=== PATIENT | female | born 1995 | race Caucasian/White ===

== ENCOUNTER → 2020-12-06 14:40 | Outpatient (CLI) | payer OTHER, SELFPAY ==
[2020-12-08 16:26] LABS: Varicella Zoster IgG 495 index (Immune >165)
== END ==
PROVIDERS: Visit Provider Emergency Medicine
DX: Z01.84 Encounter for antibody response examination (principal)
CPT/HCPCS: 86787

== ENCOUNTER → 2020-12-09 15:40 | Outpatient (CLI) | payer OTHER, SELFPAY ==
[2020-12-11 08:13] LABS: Hep B Surface Ab, Qual Reactive (.)
== END ==
PROVIDERS: Visit Provider Nurse Practitioner Family
DX: Z01.84 Encounter for antibody response examination (principal)
CPT/HCPCS: 36415; 86706

== ENCOUNTER → 2021-01-18 13:51 | Outpatient (CLI) | payer OTHER, SELFPAY | PROVIDERS: PCP Emergency Medicine; Visit Provider Nurse Practitioner | DX: Z20.822 Contact with and (suspected) exposure to COVID-19 (principal) | CPT/HCPCS: C9803; U0003; U0005 ==

== ENCOUNTER 2021-01-26 17:01 | Emergency (ER) | payer OTHER, SELFPAY ==
[2021-01-26 17:18] VITALS: BP 127/81; PULSE 84; RESP 18; TEMP 36.7; O2SAT 100; BMI 25.6
--- NOTE | 2021-01-26 17:43 | HMH.EDUTC ---
[facility] [place] Clinical Impression: Acute bronchitis Qualifiers: Bronchitis organism: other organism Qualified Code(s): J20.8 - Acute bronchitis due to other specified organisms Sinusitis Qualifiers: Sinusitis location: unspecified location Chronicity: acute Recurrence: non-recurrent Qualified Code(s): J01.90 - Acute sinusitis, unspecified Disposition: Home, Self-Care Condition on Discharge: Good Instructions: DI for Sinusitis, DI for Acute Bronchitis Additional Instructions: Drink plenty of fluids. Take tylenol or ibuprofen for pain or fever. Take the medications as directed. Follow up with your regular doctor. GO TO THE ER FOR ANY WORSENING SYMPTOMS The cough medication (promethazine dm) will make you drowsy, so don't drive or operate heavy machinery after taking it. Prescriptions: Promethazine/Dextromethorphan [Promethazine-Dm Syrup] 5 ml PO Q6HP PRN #240 ml PRN Reason: Cough Transmission Status: Received by [id number] methylPREDNISolone [Medrol] 4 mg PO DIRECTED 6 Days #21 packet Transmission Status: Received by [id number] Azithromycin [Z-Lauro 250mg Tab*] 250 mg PO UD DOSE PK #6 tab Transmission Status: Received by [id number] Referrals: Anselmo Crystal MD [Primary Care Provider] - Forms: Work/School Release Time of Disposition: 17:47 Medical Decision Making - Medical Records Medical records reviewed: No: I reviewed the patient's medical records. - Reese Inquiry Pt receiving controlled substance: No Vital Signs: 01/26/21 17:18 01/26/21 18:08 Temperature 98.1 F 98.1 F Temperature Source Oral Pulse Rate 84 Pulse Rate [Right] 84 Respiratory Rate 18 18 Blood Pressure 127/81 Blood Pressure [Right Arm] 127/81 Blood Pressure Mean [Right Arm] 96 Blood Pressure Source Automatic Cuff Blood Pressure Source [Right Arm] Automatic Cuff Blood Pressure Position [Right Arm] Sitting 02 Sat by Pulse Oximetry 100 Oxygen Delivery Method Room Air Room Air - Lab Data Lab results reviewed: Yes: I reviewed the patient's lab results. Lab Results 01/26/21 17:47: Chlamy pneumoniae PCR Not detected, Adenovirus (PCR) Not detected, B. pertussis DNA (PCR) Not detected, Coronavirus OC43 (PCR) Not detected, Coronavirus HKU1 (PCR) Not detected, Coronavirus 229E (PCR) Not detected, SARS-CoV-2 (PCR) Not detected, Coronavirus NL63 (PCR) Not detected, Human Metapneumovir PCR Not detected, Influenza A (H1) PCR Not detected, Influ A (H1N1/09) PCR Not detected, Influenza A (H3) PCR Not detected, Influenza Type A (PCR) Not detected, Influenza Type B (PCR) Not detected, M. pneumoniae (PCR) Not detected, Parainfluenza 1 (PCR) Not detected, Parainfluenza 2 (PCR) Not detected, Parainfluenza 3 (PCR) Not detected, Parainfluenza 4 (PCR) Not detected, RSV (PCR) Not detected, Entero/Rhino (PCR) Not detected Orders (Tests/Meds): ED MEDICATIONS Discontinued Medications Generic Name Dose Route Start Last Admin Trade Name Freq PRN Reason Stop Dose Admin Methylprednisolone Sodium Succinate 125 mg 01/26/21 17:47 01/26/21 17:55 Methylprednisolone Sod Succ 125mg Vial IM 01/26/21 17:48 125 mg ONCE ONE Administration [facility] [place] HPI - General Stated complaint: sore throat,congestion Time Seen by Provider: 01/26/21 17:30 Mode of Arrival: Ambulatory Source of Information: Patient Limitations: No Limitations Description of Symptoms (Recalled from Triage Doc. by RN): pt c/o chest congestion and states she has junk in my throat pt also has a productive cough. denies chest pain and sob. HEENT Symptoms (Recalled from RN notes): No Resp Symptoms (Recalled from RN notes): Yes (cough, congestion) Skin Symptoms (Recalled from RN notes): No MS Symptoms (Recalled from RN notes): No Functional Status (Recalled from RN notes): n/a - History of Present Illness Provider Complaint: She states that she has had chest congestion and sinus congestion for the past 2 weeks or so. Sh
[2021-01-26 17:50] LABS: Adenovirus,PCR Not Detected (NotDetected); Bordetella Pertussis Not Detected (NotDetected); Chlamydophila Pneumoniae, PCR Not Detected (NotDetected); Coronavirus 19, PCR Not Detected (NotDetected); Coronavirus 229E Not Detected (NotDetected); Coronavirus NL63 Not Detected (NotDetected); Coronavirus OC43 Not Detected (NotDetected); Coronovirus HKU1,PCR Not Detected (NotDetected); Human Metapneumovirus Not Detected (NotDetected); Influenza A, PCR Not Detected (NotDetected); Influenza AH1, 2009 Not Detected (NotDetected); Influenza AH1, PCR Not Detected (NotDetected); Influenza AH3,PCR Not Detected (NotDetected); Influenza B, PCR Not Detected (NotDetected); Mycoplasma Pneumoniae, PCR Not Detected (NotDetected); Parainfluenza 1, PCR Not Detected (NotDetected); Parainfluenza 2, PCR Not Detected (NotDetected); Parainfluenza 3, PCR Not Detected (NotDetected); Parainfluenza 4, PCR Not Detected (NotDetected); Respiratory Syncytial Virus Not Detected (NotDetected); Rhinovirus/Enterovirus Not Detected (NotDetected)
[2021-01-26 18:08] VITALS: BP 127/81; PULSE 84; RESP 18; TEMP 36.7; O2SAT 100
== END 2021-01-26 18:10 | disposition home or self-care (01) ==
PROVIDERS: Emergency Provider Nurse Practitioner Family; PCP Emergency Medicine
DX: J20.8 Acute bronchitis due to other specified organisms (principal); J01.90 Acute sinusitis, unspecified; Z20.822 Contact with and (suspected) exposure to COVID-19; F41.8 Other specified anxiety disorders
CPT/HCPCS: 87581; 87632; 87798; 96372; 99202; C9803; G0463; U0003; U0005

== ENCOUNTER 2021-05-02 16:35 | Outpatient (CLI) | payer OTHER, SELFPAY ==
[2021-05-02 16:43] VITALS: BMI 28.9
== END 2021-05-02 16:45 | disposition home or self-care (01) ==
PROVIDERS: PCP Emergency Medicine; Visit Provider Nurse Practitioner
DX: J02.0 Streptococcal pharyngitis (principal)
CPT/HCPCS: 96372; J0561

== ENCOUNTER 2021-05-20 12:09 | Emergency (ER) | payer OTHER, SELFPAY ==
[2021-05-20 13:30] VITALS: BP 99/64; PULSE 82; RESP 20; TEMP 36.9; O2SAT 99; BMI 27.4
[2021-05-20 13:57] LABS: Influenza A, PCR Not Detected (NotDetected); Influenza B, PCR Not Detected (NotDetected)
--- NOTE | 2021-05-20 13:58 | HMH.EDUTC ---
[facility] – [place] Disposition Clinical Impression: COVID-19 Disposition: Home, Self-Care Condition on Discharge: Good Instructions: DI for Cough -- Adult, DI for COVID-19 (Suspected or Confirmed ), Preventing the Spread of Coronavirus Discharge Instructions Additional Instructions: *Monitor Temp, Over the counter Motrin or Tylenol as directed/as needed Tylenol every 4 hours and Motrin every 6 hours (as long as your family doctor has told you that you can take it) for fever or pain. and straight to ER if unable to lower temp less than 101.0 after medication given *Warm salt water gargles may help to soothe the throat *Throat Lozenges *Warm fluids like tea with honey may help to soothe the throat *Sleep elevated *Humidifier/Vaporizer Follow up IMMEDIATELY for new or worsening symptoms or no Noticeable improvement over the next 48-72 hours. 911 for difficulty breathing or swallowing You were tested for today for COVID19 your test result should be back in the next 24-48 hours, you may check your results on the [facility] my health Portal if you have trouble logging on you can call Tech Support You was given a handout with instructions for Self Quarantine and Self isolation for while you wait on test results and what to do if they are positive If you are positive the Health Dept will be contacting you also Make sure to take your Vitamins Vit. C Vit D and Zinc if you can take them Prescriptions: Brompheniramine/Pseudoephed/Dm [Bromfed Dm Cough Syrup] 5 - 10 ml PO Q46H PRN #200 ml PRN Reason: Cough Transmission Status: Received by [facility]/pharmacy #[id number] dexAMETHasone [Decadron] 6 mg PO DAILY 7 Days #7 tab Transmission Status: Received by [facility]/pharm[facility] #[id number] Referrals: Anselmo Crystal MD [Primary Care Provider] - As needed Forms: Work/School Release Time of Disposition: 14:34 Medical Decision Making - Reese Inquiry Pt receiving controlled substance: No Reese was queried for this patient: No Vital Signs: 05/20/21 13:30 05/20/21 14:37 Temperature 98.4 F 98.4 F Temperature Source Oral Pulse Rate 82 Pulse Rate [Right Brachial] 82 Respiratory Rate 20 20 Blood Pressure 99/64 L Blood Pressure [Right Arm] 99/64 L Blood Pressure Mean [Right Arm] 75 Blood Pressure Source [Right Arm] Automatic Cuff Blood Pressure Position [Right Arm] Sitting 02 Sat by Pulse Oximetry 99 Oxygen Delivery Method Room Air - Lab Data Lab results reviewed: Yes: I reviewed the patient's lab results. Lab Results 05/20/21 13:53: SARS-CoV-2 (PCR) Detected A, Influenza A Untype (PCR) Not detected, Influenza Type B (PCR) Not detected Medical Decision Narrative: Patient states that she has taken Promethazine and Dextromethmorphan [facility] [place] HPI - General Stated complaint: cough, runny nose, congestion Time Seen by Provider: 05/20/21 13:59 Mode of Arrival: Ambulatory Source of Information: Patient Limitations: No Limitations Description of Symptoms (Recalled from Triage Doc. by RN): PATIENT C/O FLU-LIKE SYMPTOMS THAT STARTED SUNDAY HEENT Symptoms (Recalled from RN notes): Yes Resp Symptoms (Recalled from RN notes): Yes Skin Symptoms (Recalled from RN notes): No MS Symptoms (Recalled from RN notes): No Functional Status (Recalled from RN notes): WNL - History of Present Illness Provider Complaint: Patient states that she has been having flu like symptoms since Sun States that she has been feeling achy with body aches, chills and nasal congestion States that drainage is clear and she is suppose to work and she is in college so she needed to get tested to make sure she didnt have COVID to return to work and school - Related Data Home Medications Medication Instructions Recorded Confirmed sertraline 100 mg tablet 100 mg PO DAILY 11/24/20 11/24/20 Previous Rx's Medication Instructions Recorded Azithromycin [Z-Lauro 250mg Tab*] 250 mg PO UD DOSE PK #6 tab 01/26/21 Promethazine/Dextromethorphan 5 ml PO Q6HP PRN #240 ml 01/26/21 [Prometha
[2021-05-20 14:21] LABS: Coronavirus 19, PCR Detected (NotDetected)
[2021-05-20 14:37] VITALS: BP 99/64; PULSE 82; RESP 20; TEMP 36.9; O2SAT 99
== END 2021-05-20 14:41 | disposition home or self-care (01) ==
PROVIDERS: Emergency Provider Nurse Practitioner; PCP Emergency Medicine
DX: U07.1 COVID-19 (principal); F41.8 Other specified anxiety disorders
CPT/HCPCS: 99202; C9803; G0463; U0003; U0005

== ENCOUNTER → 2021-09-02 12:38 | Outpatient (CLI) | payer OTHER, SELFPAY ==
[2021-09-02 12:59] LABS: Microscopic, Urine URINE MICROSCOPIC (MICROSCOPIC)
[2021-09-02 13:02] LABS: Appearance,Urine CLOUDY (Clear); Bilirubin,Urine Negative (Negative); Blood, Urine 1+ (Negative); Color,Urine YELLOW (Yellow); Glucose,Urine (UA) Negative (Negative); Ketones,Urine Negative (Negative); Leukocyte Esterase,Urine 2+ (Negative); Nitrate,Urine Negative (Negative); Protein,Urine 2+ (Negative); Specific Gravity, Urine 1.025 (1.005-1.030)
[2021-09-02 13:19] LABS: Bacteria,Urine 3+ /lpf; WBC,Urine TNTC #/hpf (0-3)
== END ==
PROVIDERS: PCP Emergency Medicine; Visit Provider Nurse Practitioner
DX: N39.0 Urinary tract infection, site not specified (principal); B95.2 Enterococcus as the cause of diseases classified elsewhere
CPT/HCPCS: 81001; 87086; 87088; 87186

== ENCOUNTER 2021-10-04 17:28 | Inpatient (IN) | payer OTHER, SELFPAY ==
[2021-10-04] VITALS (9 sets, daily range): BP systolic 99–166; BP diastolic 52–94; PULSE 54–124; RESP 16–19; TEMP 36.8–36.9; O2SAT 96–100; BMI 27.4; BMI 27.6; BMI 29.8
[2021-10-04 17:51] LABS: Color,Urine Dark Yellow (Yellow)
--- NOTE | 2021-10-04 17:51 | HMH.EDUTC ---
[facility] – [place] Disposition Clinical Impression: Flank pain Disposition: Still a Patient Condition on Discharge: Fair Referrals: Anselmo Crystal MD [Primary Care Provider] - Medical Decision Making - Reese Inquiry Pt receiving controlled substance: No Reese was queried for this patient: No Vital Signs: 10/04/21 17:30 Temperature 98.5 F Temperature Source Oral Pulse Rate [Right Brachial] 84 Respiratory Rate 19 Blood Pressure [Right Arm] 116/73 Blood Pressure Mean [Right Arm] 87 Blood Pressure Source [Right Arm] Automatic Cuff Blood Pressure Position [Right Arm] Sitting 02 Sat by Pulse Oximetry 100 Oxygen Delivery Method Room Air Medical Decision Narrative: Due to location of pain and severity discussed with patient and recommended transfer to the ED for further work up and evaluation and patient agreed Called ED spoke with Symone and patient was moved to room 8 [facility] [place] HPI - General Stated complaint: Left side pain Time Seen by Provider: 10/04/21 17:45 Mode of Arrival: Ambulatory Source of Information: Patient Limitations: No Limitations Description of Symptoms (Recalled from Triage Doc. by RN): PATIENT C/O LEFT SIDE PAIN THAT RADIATES TO BACK THAT STARTED LAST NIGHT HEENT Symptoms (Recalled from RN notes): No Resp Symptoms (Recalled from RN notes): No Skin Symptoms (Recalled from RN notes): No MS Symptoms (Recalled from RN notes): No Functional Status (Recalled from RN notes): WNL - History of Present Illness Provider Complaint: Patient states that she has been having pain in her left abdomen/side area that radiates to her back since last night States that this morning pain was severe and now rates pain a 6/10 States that pain is making her feel sick at her stomach States that this evening pain started getting worse so she came in - Related Data Home Medications Medication Instructions Recorded Confirmed sertraline 100 mg tablet 100 mg PO DAILY 11/24/20 11/24/20 Previous Rx's Medication Instructions Recorded Azithromycin [Z-Lauro 250mg Tab*] 250 mg PO UD DOSE PK #6 tab 01/26/21 Promethazine/Dextromethorphan 5 ml PO Q6HP PRN #240 ml 01/26/21 [Promethazine-Dm Syrup] methylPREDNISolone [Medrol] 4 mg PO DIRECTED 6 Days #21 01/26/21 packet hydrocortisone acetate 30 mg 30 mg [place] BID #12 each 02/18/21 rectal suppository Brompheniramine/Pseudoephed/Dm 5 - 10 ml PO Q46H PRN #200 ml 05/20/21 [Bromfed Dm Cough Syrup] dexAMETHasone [Decadron] 6 mg PO DAILY 7 Days #7 tab 05/20/21 Allergies Allergy/AdvReac Type Severity Reaction Status Date / Time No Known Allergies Allergy Verified 11/24/20 14:52 - Worker's Comp Is this a Worker's Comp case?: No [facility] History - Hepatitis A Screen Attestation statement:: This patient has been screened for Hepatitis A risk factors. I have reviewed the patient's past medical history: Yes Medical History: Reports:: Anxiety, Depression Denies:: Cancer, Diabetes Mellitus Type 1, Diabetes Mellitus Type 2, MRSA Laterality Cases: Bilateral: Other Other Surgeries: Yes: Colonoscopy, , EGD Amputation: No Fractures: No - Social History Smoking Status: Never smoker Alcohol Intake: never Occupational Status: other - Psychiatric History Pschychiatric History:: Reports:: Anxiety, Depression ROS Obtained: Yes All systems reviewed & no additional complaints, Yes Systems reviewed as appropriate & no additional complaints - Constitutional Constitutional: Reports system reviewed and no additional complaints, except as docu - Eyes Eyes: Reports system reviewed and no additional complaints, except as docu - ENT Ears, Nose, Mouth, and Throat: Reports system reviewed and no additional complaints, except as docu - Cardiovascular Cardiovascular: Reports system reviewed and no additional complaints, except as docu - Respiratory Respiratory: Reports system reviewed and no additional complaints, except as docu - Gastrointestinal Gastrointestinga
[2021-10-04 17:52] LABS: Apearance,Urine Cloudy (Clear); Bilirubin,Urine Negative (Negative); Blood, Urine 2+ (Negative); Glucose,Urine (UA) Negative (Negative); Ketones,Urine Negative (Negative); PH,Urine 6.5 (5.0-8.5); Protein,Urine 1+ (Negative); Specific Gravity, Urine 1.025 (1.005-1.030); UTC Leukocyte Esterase,Urine 1+ (Negative); UTC Nitrate,Urine Negative (Negative); Urobilinogen,Urine 1 EU/dl (0.2)
--- NOTE | 2021-10-04 18:02 | CT_ITS ---
PROCEDURE INFORMATION: Exam: CT Abdomen And Pelvis Without Contrast Exam date and time: 10/04/2021 6:28 PM Age: 25 years old Clinical indication: Abdominal pain; Flank; Left; Prior surgery; Surgery type: x 3 years ago; Additional info: Left flank pain, hematuria TECHNIQUE: Imaging protocol: Computed tomography of the abdomen and pelvis without contrast. Radiation optimization: All CT scans at this facility use at least one of these dose optimization techniques: automated exposure control; mA and/or kV adjustment per patient size (includes targeted exams where dose is matched to clinical indication); or iterative reconstruction. COMPARISON: [facility] CT abdomen pelvis wo con 10/11/2017 7:20 PM FINDINGS: Lungs: No acute findings in the visualized lower lungs. No consolidation. Liver: No hepatomegaly. Calcified hepatic granulomas. Gallbladder and bile ducts: The gallbladder is unremarkable. No calcified stones or biliary dilatation. Pancreas: The pancreas is normal. Spleen: No splenomegaly. Multiple calcified granulomas. Adrenal glands: The adrenal glands are normal. Kidneys and ureters: The punctate stone seen in the right kidney on the prior exam from 2017 is no longer visualized, and may have passed in the interval or may be not well seen on today's study due to tiny size. No hydronephrosis, hydroureter, or calcified obstructing ureteral stones are seen. Stomach and bowel: There is soft tissue edema surrounding the left lower quadrant colon at the junction of descending and sigmoid colon, and trace pericolic fluid, which appears most likely emanating from the ovary but could be of bowel etiology. Differential would be occult diverticulitis. A couple of colonic diverticula noted. No dilated bowel loops. No definite mucosal thickening. Scattered small intestinal air-fluid levels noted, greatest at the left flank, but no mucosal thickening or findings of bowel obstruction. Stomach is distended with fluid, no acute findings. Appendix: A normal appendix is identified. Intraperitoneal space: Trace left lower quadrant fluid and edema in the lower pericolic gutter and at the pelvic inlet. No free intraperitoneal air. Vasculature: No abdominal aortic aneurysm. No portal venous gas. Lymph nodes: Shotty retroperitoneal nodes in the left para-aortic space, no significantly enlarged nodes by short axis criteria. Urinary bladder: Thickened urinary bladder wall, concerning for history of cystitis or bladder hypertrophy. No calcified stones. Reproductive: Tampon noted in the vagina. Uterus is unremarkable for age, tilted toward the left. The left ovary appears enlarged compared with right with heterogeneous attenuation and surrounding soft tissue edema, with trace fluid extending laterally from the ovary to the left pericolic gutter; see axial series 3, images 73-82, coronal images 21-28. Differential would include an underlying complex 2.6 cm left adnexal cyst or mass, TOA or ovarian torsion. No suspicious findings at the right adnexa. Bones/joints: There is no evidence of acute fracture. Soft tissues: There is a tiny fatty umbilical hernia; no herniated bowel loops. There are no soft tissue masses or fluid collections. IMPRESSION: 1. Thickened urinary bladder wall, correlate for cystitis or history of bladder hypertrophy. 2. Left lower quadrant inflammatory process, nonspecific as to ovarian versus bowel etiology. There is mild asymmetric enlargement of the left ovary compared with right, edema fluid abutting the left ovary and abutting left lower quadrant colon loops, extending into the left pericolic gutter, with soft tissue stranding. Differe
--- NOTE | 2021-10-04 18:03 | HMH.EDABDPAI ---
ED Disposition Clinical Impression: Flank pain Disposition: Still a Patient Condition on Discharge: Good Referrals: Anselmo Crystal MD [Primary Care Provider] - - Critical Care Critical Care Time: No Attestation: On 10/04/21, the high probability of a clinically significant, sudden or life threatening deterioration of the following system(s) required my full and direct attention, intervention and personal management. The time I documented below is in addition to time spent performing reported procedures but includes the following listed in this critical care notation. Medical Decision Making - Medical Records Medical records reviewed: Yes: I reviewed the patient's medical records. - Reese Inquiry Pt receiving controlled substance: No Vital Signs: 10/04/21 17:30 10/04/21 17:55 10/04/21 17:59 Temperature 98.5 F 98.5 F Temperature Source Oral Oral Pulse Rate 77 Pulse Rate [Right Brachial] 84 84 Respiratory Rate 19 19 Blood Pressure 122/70 Blood Pressure [Right Arm] 116/73 166/73 H Blood Pressure Mean [Right Arm] 87 104 Blood Pressure Source [Right Arm] Automatic Cuff Automatic Cuff Blood Pressure Position [Right Arm] Sitting Sitting 02 Sat by Pulse Oximetry 100 100 100 Oxygen Delivery Method Room Air Room Air - Lab Data Lab Results 10/04/21 17:48: Urine HCG, Qual Negative 10/04/21 17:51: Urine Color Dark yellow, Urine Appearance Cloudy, Urine pH 6.5, Ur Specific [place] 1.025, Urine Protein 1+, Urine Glucose (UA) Negative, Urine Ketones Negative, Urine Blood 2+, Urine Nitrate Negative, Urine Bilirubin Negative, Urine Urobilinogen 1, Ur Leukocyte Esterase 1+ A Orders (Tests/Meds): ED MEDICATIONS Discontinued Medications Generic Name Dose Route Start Last Admin Trade Name Adolphq PRN Reason Stop Dose Admin Hydrocodone Bitart/Acetaminophen 1 tab 10/04/21 18:26 10/04/21 18:28 Hydrocodone/Apap 5/325 Mg Tablet PO 10/04/21 18:27 1 tab ONCE ONE Administration Morphine Sulfate 2 mg 10/04/21 19:49 Morphine 2mg/Ml Syringe IV 10/04/21 19:50 ONCE ONE ORDERS Category Date Time Status US transvaginal Stat Exams 10/04/21 19:49 Ordered CMP [Comprehensive Metabolic Panel] Stat Lab 10/04/21 19:49 Ordered Complete Blood Count Auto Diff Stat Lab 10/04/21 19:49 Ordered Abdominal Pain HPI - General Stated Complaint: Left side pain Time Seen by Provider: 10/04/21 18:03 Mode of Arrival: Ambulatory Source of Information: Patient Limitations: No Limitations Description of Symptoms (Recalled from ER Triage Doc. by RN): PATIENT C/O LEFT SIDE PAIN THAT RADIATES TO BACK THAT STARTED LAST NIGHT - History of Present Illness HPI narrative: left low abd/left flank pain since this am on menst cycle current MD complaint: abdominal pain, flank pain Onset (ago): hour(s) Consistency: constant Location: LLQ, L flank Severity: moderate Quality: aching Radiation: none Relieving factors: nothing Exacerbating factors: nothing Associated symptoms: denies other symptoms - Related Data Home Medications Medication Instructions Recorded Confirmed sertraline 100 mg tablet 100 mg PO DAILY 11/24/20 11/24/20 Previous Rx's Medication Instructions Recorded Azithromycin [Z-Lauro 250mg Tab*] 250 mg PO UD DOSE PK #6 tab 01/26/21 Promethazine/Dextromethorphan 5 ml PO Q6HP PRN #240 ml 01/26/21 [Promethazine-Dm Syrup] methylPREDNISolone [Medrol] 4 mg PO DIRECTED 6 Days #21 01/26/21 packet hydrocortisone acetate 30 mg 30 mg [place] BID #12 each 02/18/21 rectal suppository Brompheniramine/Pseudoephed/Dm 5 - 10 ml PO Q46H PRN #200 ml 05/20/21 [Bromfed Dm Cough Syrup] dexAMETHasone [Decadron] 6 mg PO DAILY 7 Days #7 tab 05/20/21 Allergies Allergy/AdvReac Type Severity Reaction Status Date / Time No Known Allergies Allergy Verified 11/24/20 14:52 [facility] History - Hepatitis A Screen Attestation statement:: This patient has been screened for Hepatiti
[2021-10-04 18:17] LABS: Urine Pregnancy, HCG Qual. Negative (Negative)
--- NOTE | 2021-10-04 18:31 | PC.NURSE ---
Pt to rad
--- NOTE | 2021-10-04 19:41 | PC.NURSE ---
pt resting in bed. Advised we were waiting on CT scan. No new needs
--- NOTE | 2021-10-04 19:49 | US_ITS ---
PROCEDURE INFORMATION: Exam: US Pelvis, Transvaginal Exam date and time: 10/04/2021 8:47 PM Age: 25 years old Clinical indication: Pelvic pain; Additional info: Llq abd pain, R/O ov torsion, abnormal CT. (Negative test per my earlier telephone discussion with Dr. Sykes, when I telephoned him to recommend a follow-up pelvic ultrasound with duplex Doppler exam to exclude ovarian torsion.) TECHNIQUE: Imaging protocol: Real-time transvaginal pelvic ultrasound with image documentation. Transvaginal imaging was used for better evaluation of the endometrium, adnexa, and/or cervix. COMPARISON: CT ABDOMEN PELVIS WO CON 10/04/2021 6:28 PM FINDINGS: Uterus: The uterus appears nongravid measuring 6.7 x 3.9 x 4.8 cm. Endometrial stripe appears within normal limits, measuring approximately 5-6 mm thickness. No myometrial mass. Cervix: Tiny cervical nabothian cysts, up to 5 mm. Right ovary/adnexa: The right ovary measured approximately 3.2 x 1.8 x 2.4 cm diameter, containing several tiny follicles. No enlarged cyst or mass on the right. Left ovary/adnexa: Left ovarian tissue was not well seen, presumed enlarged/obscured by a 10.8 x 6.4 x 8.5 cm left adnexal cystic mass. This appears partially sonolucent, but contains multiple internal low level echoes as well, see image 19. No layering fluid levels are visualized. No honeycomb septations to confirm a hemorrhagic cyst. No internal nodules. Limited color images were obtained which show color flow within the wall of the cyst, but a duplex Doppler exam was not performed. Intraperitoneal space: No free fluid is seen in the cul-de-sac. Trace fluid is noted abutting the left adnexal cystic lesion. IMPRESSION: 1. A 10.8 x 6.4 x 8.5 cm complex left adnexal cystic mass as detailed above. Sonographic findings are indeterminate, findings suggestive of, but not classic for, endometrioma, hemorrhagic cyst or dermoid. If there is no clinical or laboratory evidence to suggest infection, recommend 6-12 week follow-up to ensure resolution. If the cyst is unchanged, then hemorrhagic cyst is unlikely, and continued follow-up with either US or MR should then be considered. If these studies do not confirm an endometrioma or dermoid, then surgical evaluation should be considered. 2. A duplex Doppler exam was not performed, but limited color flow images show flow within the wall of the left adnexal cyst. Note: The presence of flow at color Doppler imaging does not allow exclusion of torsion but instead suggests that the ovary may be viable. ( Reference: Ministerio Johnson Dogra Pearls and Pitfalls in Diagnosis of Ovarian Torsion, [employer], Vol 28, No. 5, Sep 2007.) Recommend gynecological consult. 3. Trace free fluid abutting the left adnexal cystic lesion. 4. Normal appearance of the uterus and right ovary.
--- NOTE | 2021-10-04 19:51 | PC.NURSE ---
spoke with BK who recommended transvaginal US at this time
--- NOTE | 2021-10-04 19:51 | PC.NURSE ---
Notified rad need for transvaginal US for possible ovarian torsion
--- NOTE | 2021-10-04 20:00 | PC.NURSE ---
pt medicated per JUN and placed in gown
[2021-10-04 20:01] LABS: Basophils # 0.2 K/mm3 (0-0.2); Basophils % 2.4 % (0.1-2.0); Eosinophils # 0.4 K/mm3 (0.0-0.4); Eosinophils % 4.1 % (0.1-12.0); Hematocrit 35.4 % (37.0-47.0); Hemoglobin 12.3 g/dL (12.2-16.2); Lymphocytes # 2.8 K/mm3 (0.7-4.5); Mean Corpuscular HGB Conc 34.9 g/dL (31.8-35.4); Mean Corpuscular Hemoglobin 28.2 pg (27.0-31.2); Mean Corpuscular Volume 80.8 fl (81-99); Mean Platelet Volume 7.4 fl (7.4-10.4); Monocytes # 0.6 K/mm3 (0.1-1.0); Monocytes % 6.4 % (1.7-9.3); Neutrophils # 5.5 K/mm3 (1.8-7.8); Neutrophils % 58.1 % (37.0-80.0); Platelet Count 305 K/mm3 (142-424); Red Blood Count 4.38 M/mm3 (4.20-5.40); Red Cell Distribution Width 13.3 % (11.5-17.5); White Blood Count 9.5 K/mm3 (4.8-10.8)
[2021-10-04 20:06] LABS: Chloride 103 mmol/L (98-107); Potassium 3.6 mmoL/L (3.5-5.1); Sodium 138 mmol/L (136-145)
[2021-10-04 20:09] LABS: Alanine Aminotransferase 14 U/L (12-78); Albumin Level 4.4 g/dl (3.5-5.0); Albumin/Globulin Ratio 1.4 (1.1-1.8); Alkaline Phosphatase 74 U/L (38-126); Anion Gap 11.6 mEq/L (5-15); Aspartate Amino Transferase 30 U/L (14-36); Bilirubin,Total 0.5 mg/dl (0.2-1.3); Blood Urea Nitrogen 14 mg/dl (7-17); Carbon Dioxide 27 mmol/L (22.0-30.0); Creatinine Clearance Estimated 117 mL/min (50-200); Estimated Glomerular Filt Rate 89 ml/min (>60); GFR (African American) 108 ML/MIN (>60); Globulin 3.1 g/dL (1.3-3.2); Total Protein,Serum 7.5 g/dl (6.3-8.2)
[2021-10-04 20:10] LABS: Calcium 9.6 mg/dl (8.4-10.2); Glucose 113 mg/dl (74-100)
--- NOTE | 2021-10-04 20:48 | PC.NURSE ---
PT to rad
--- NOTE | 2021-10-04 22:16 | PC.NURSE ---
rounded on pt at this time and medicated per MAR. Pt resting. No other needs
--- NOTE | 2021-10-04 22:18 | PC.NURSE ---
ER speaking with Dr Talbert
[2021-10-04 22:28] LABS: Erythrocyte Sedimentation Rate 17 mm/hr (0-20)
--- NOTE | 2021-10-04 22:30 | PC.NURSE ---
Patient admitted to [address] Golden with pelvic mass
--- NOTE | 2021-10-04 22:38 | PC.NURSE ---
Report given to Jesus Manuel
[2021-10-04 22:55] LABS: Coronavirus 19, PCR Not Detected (NotDetected); Influenza A, PCR Not Detected (NotDetected); Influenza B, PCR Not Detected (NotDetected)
--- NOTE | 2021-10-04 23:04 | PC.NURSE ---
patient up to floor via wheelchair @ this time.
[2021-10-05] VITALS (20 sets, daily range): BP systolic 94–135; BP diastolic 47–79; PULSE 56–91; RESP 12–20; TEMP 36.1–36.9; O2SAT 98–100
[2021-10-05 07:02] LABS: Chloride 106 mmol/L (98-107); Sodium 139 mmol/L (136-145)
[2021-10-05 07:03] LABS: Potassium 3.6 mmoL/L (3.5-5.1)
[2021-10-05 07:06] LABS: Anion Gap 9.6 mEq/L (5-15); Blood Urea Nitrogen 10 mg/dl (7-17); Calcium 8.7 mg/dl (8.4-10.2); Carbon Dioxide 27 mmol/L (22.0-30.0); Creatinine Clearance Estimated 127 mL/min (50-200); Estimated Glomerular Filt Rate 89 ml/min (>60); GFR (African American) 108 ML/MIN (>60); Glucose 101 mg/dl (74-100)
--- NOTE | 2021-10-05 07:08 | HMH.PHAVTE ---
[facility] Pharmacy VTE Monitoring - Patient Demographics Admission date: 10/04/21 Report Date: 10/05/21 Time: 07:08 Allergies/Adverse Reactions: Patient Allergies No Known Allergies Allergy (Verified 11/24/20 14:52) Height: 1.57 m Weight: 73.482 kg Patient Problems: Current Active Problems Flank pain (Acute) - VTE Risk Labs: VTE Related Lab Results Hgb 12.3 g/dL (12.2-16.2) 10/04/21 19:52 Hct 35.4 % (37.0-47.0) L 10/04/21 19:52 Plt Count 305 K/mm3 (142-424) 10/04/21 19:52 BUN 14 mg/dl (7-17) 10/04/21 19:52 Creatinine 0.80 mg/dl (0.52-1.04) 10/04/21 19:52 Estimated Creat Clear 117 mL/min (50-200) 10/04/21 19:52 - Prophylaxis VTE Prophylaxis Ordered?: Yes Types of VTE Prophylaxis: TEDS Knee High Location of Applied Device: Bilateral Lower Extremeties
--- NOTE | 2021-10-05 07:08 | HMH.PHAINT ---
MEDICATION RECONCILIATION COMPLETED ON PATIENT USING EXTERNAL FILL HISTORY FROM PHARMACY. -JIHAN LEPE, MARISOLD
[2021-10-05 08:36] LABS: Basophils # 0.1 K/mm3 (0-0.2); Basophils % 0.8 % (0.1-2.0); Eosinophils # 0.3 K/mm3 (0.0-0.4); Eosinophils % 2.9 % (0.1-12.0); Hematocrit 34.5 % (37.0-47.0); Hemoglobin 11.6 g/dL (12.2-16.2); Lymphocytes # 2.9 K/mm3 (0.7-4.5); Lymphocytes % 31.2 % (10-50); Mean Corpuscular HGB Conc 33.5 g/dL (31.8-35.4); Mean Corpuscular Hemoglobin 27.9 pg (27.0-31.2); Mean Corpuscular Volume 83.1 fl (81-99); Mean Platelet Volume 7.8 fl (7.4-10.4); Monocytes # 0.6 K/mm3 (0.1-1.0); Neutrophils # 5.5 K/mm3 (1.8-7.8); Neutrophils % 59.1 % (37.0-80.0); Platelet Count 295 K/mm3 (142-424); Red Blood Count 4.16 M/mm3 (4.20-5.40); Red Cell Distribution Width 13.7 % (11.5-17.5); White Blood Count 9.2 K/mm3 (4.8-10.8)
--- NOTE | 2021-10-05 09:46 | HMH.HP ---
*Admission Date: 10/04/21 *Chief complaint: Left lower quadrant pain, left flank pain, hemorrhagic ovarian cyst *History of present illness: She is a 25-year-old lady who complains of onset of left lower quadrant pain yesterday morning at about 4 AM. She took Tylenol and Motrin and the pain was getting very severe. She came into the ER yesterday evening. Ultrasound showed that she had a 10 x 6 cm hemorrhagic ovarian cyst. She is admitted for pain relief and we will go ahead with a laparoscopic ovarian cystectomy today. [facility] History I have reviewed the patient's past medical history: Yes Medical History: Reports:: Anxiety, Depression Denies:: Cancer, Diabetes Mellitus Type 1, Diabetes Mellitus Type 2, MRSA *Have you ever received a pneumonia vaccine?: No *Have you received a flu vaccine this season?: Yes Laterality Cases: Bilateral: Other Other Surgeries: Yes: Colonoscopy, , EGD, Other (wisdom teeth extraction) Amputation: No Fractures: No - *Social History Last grade of school completed: Some college Smoking Status: Never smoker Alcohol Intake: current Alcohol Intake Frequency:: holidays/special occasions only *Occupational Status:: employed Household Members: spouse, children *Travel in the last 8 weeks: None - Psychiatric History Pschychiatric History:: Reports:: Anxiety, Depression Family Hx:: No significant family history Review of Systems - Review of Systems Review of systems:: pertinent systems reviewed and negative unless documented below Meds Home Medications Medication Instructions Recorded Confirmed Type Brompheniramine/Pseudoephed/Dm 5 - 10 ml PO Q46H PRN #200 ml 05/20/21 10/05/21 Rx [Bromfed Dm Cough Syrup] Allergies Allergy/AdvReac Type Severity Reaction Status Date / Time No Known Allergies Allergy Verified 11/24/20 14:52 Exam Vital signs and Labs for Last 24 Hours: Temp Pulse Resp BP Pulse Ox 98.0 F 75 14 100/61 L 100 10/05/21 08:00 10/05/21 08:00 10/05/21 08:00 10/05/21 08:00 10/05/21 09:26 Laboratory Results - last 24 hr 10/04/21 17:48: Urine HCG, Qual Negative 10/04/21 17:51: Urine Color Dark yellow, Urine Appearance Cloudy, Urine pH 6.5, Ur Specific Rayle 1.025, Urine Protein 1+, Urine Glucose (UA) Negative, Urine Ketones Negative, Urine Blood 2+, Urine Nitrate Negative, Urine Bilirubin Negative, Urine Urobilinogen 1, Ur Leukocyte Esterase 1+ A 10/04/21 19:52: WBC 9.5, RBC 4.38, Hgb 12.3, Hct 35.4 L, MCV 80.8 L, MCH 28.2, MCHC 34.9, RDW 13.3, Plt Count 305, MPV 7.4, Neut % (Auto) 58.1, Lymph % (Auto) 29.0, Winkler % (Auto) 6.4, Eos % (Auto) 4.1, Baso % (Auto) 2.4 H, Neut # (Auto) 5.5, Lymph # (Auto) 2.8, Winkler # (Auto) 0.6, Eos # (Auto) 0.4, Baso # (Auto) 0.2 10/04/21 19:52: Sodium 138, Potassium 3.6, Chloride 103, Carbon Dioxide 27, Anion Gap 11.6, BUN 14, Creatinine 0.80, Estimated Creat Clear 117, Estimated GFR 89, Est GFR ( Amer) 108, Glucose 113 H, Calcium 9.6, Total Bilirubin 0.5, AST 30, ALT 14, Alkaline Phosphatase 74, Total Protein 7.5, Albumin 4.4, Globulin 3.1, Albumin/Globulin Ratio 1.4 10/04/21 19:52: ESR 17 10/04/21 22:37: SARS-CoV-2 (PCR) Not detected, Influenza A Untype (PCR) Not detected, Influenza Type B (PCR) Not detected 10/05/21 06:21: WBC 9.2, RBC 4.16 L, Hgb 11.6 L, Hct 34.5 L, MCV 83.1, MCH 27.9, MCHC 33.5, RDW 13.7, Plt Count 295, MPV 7.8, Neut % (Auto) 59.1, Lymph % (Auto) 31.2, Winkler % (Auto) 6.0, Eos % (Auto) 2.9, Baso % (Auto) 0.8, Neut # (Auto) 5.5, Lymph # (Auto) 2.9, Winkler # (Auto) 0.6, Eos # (Auto) 0.3, Baso # (Auto) 0.1 10/05/21 06:21: Sodium 139, Potassium 3.6, Chloride 106, Carbon Dioxide 27, Anion Gap 9.6, BUN 10 D, Creatinine 0.80, Estimated Creat Clear 127, Estimated GFR 89, Est GFR ( Amer) 108, Glucose 101 H, Calcium 8.7 I & O for Last 24 hours: Intake & Output 10/02/21 10/03/21 10/04/21 10/05/21 11:59 11:59 11:59 11:59 Intake Total 990 / 990 Balance 990 / 990 Weight 162 lb - [place]
--- NOTE | 2021-10-05 11:27 | HMH.ANESCL ---
[facility] Anesthesia Checklist - Patient Identification Patient Identification: Arm Band - Structural Data Admitted From: Inpatient Planned Operative Procedure/s: Laparoscopic Left Ovarian Cystectomy Consent for Planned Operative Procedure(s) Verified: Yes Verified Documents: Surgical Consent, History and Physical - NPO Status Verified Time NPO: 00:00 - Additional verifications Anesthesia Reactions: No - Airway Assessment C-Spine Mobility Assessed: Yes (mp2) TMJ Mobility Assessed: Yes Dentition: Good Dentition - Neurological Assessment Level of Consciousness: Awake, Alert - Anesthesia Plan Anesthesia Risk discussed: Yes Anesthesia Plan: Verified ASA Class: I Anesthesia Type: General [facility] History I have reviewed the patient's past medical history: Yes Medical History: Reports:: Anxiety, Depression Denies:: Cancer, Diabetes Mellitus Type 1, Diabetes Mellitus Type 2, MRSA *Have you ever received a pneumonia vaccine?: No *Have you received a flu vaccine this season?: Yes Anesthesia experience/problems:: nac Laterality Cases: Bilateral: Other Other Surgeries: Yes: Colonoscopy, , EGD, Other (wisdom teeth extraction) Amputation: No Fractures: No - *Social History Last grade of school completed: Some college Smoking Status: Never smoker Alcohol Intake: current Alcohol Intake Frequency:: holidays/special occasions only Substance Use Type: denies use *Occupational Status:: employed Household Members: spouse, children *Travel in the last 8 weeks: None - Psychiatric History Pschychiatric History:: Reports:: Anxiety, Depression Family Hx:: No significant family history
--- NOTE | 2021-10-05 12:59 | P.PN_ITS ---
[facility] Anesthesia Record Part I Intake, IV Amount: 500 Estimated blood loss (mL): 10 Urine output (mL): 0 Blood Products used (#): none Blood Pressure: 112/73 SaO2: 100 Pulse Rate: 73 Respiratory Rate: 12 Temperature: 97.0 F Patient is:: Drowsy Stable to PACU at:: 12:54
--- NOTE | 2021-10-05 13:19 | P.OP_ITS ---
Date of procedure: 10/05/21 Pre-op Diagnosis:: Left ovarian hemorrhagic cyst Post-op Diagnosis:: Omental adhesions, ruptured ovarian cyst Procedure performed:: Diagnostic laparoscopy, lysis of adhesions Surgeon:: Hoang Talbert MD QUALITY ASSURANCE INSPECTOR:: Other (Shabbir Mckeon) Anesthesia: GETA Estimated blood loss (mL): 25 Clinical Note:: She is a 25-year-old lady who was admitted with severe left lower quadrant pain. She had left flank pain. An ultrasound showed that she had an 8 x 10 x 6 cm left ovarian cyst that appeared to be blood-filled. As result of that she is diagnostic laparoscopy with left ovarian cystectomy. Operative findings:: There was no evidence of any left ovarian cyst. There was some blood in the pelvis. There was no evidence that she had a cyst on either ovary. Appendix appeared normal. Upper abdomen appeared normal. There were adhesions of omentum from just below the umbilicus to the top of the bladder reflection. There was some scar tissue along her old scar. Operative note:: She was taken operating room where general anesthesia was found to be adequate. She is prepped and draped in this sterile fashion in the semilithotomy position. Weighted speculum placed in vagina and the antilipid the cervix was grasped with a tenaculum. Nation dilators used to dilate the cervix up to approximately 3 mm. I then inserted a Latisha uterine manipulator into the uterine cavity. The balloon was insufflated. I then changed gloves and injected approximately 10 cc of 0.5% ropivacaine around the umbilicus. I made a small incision and then inserted a Veress needle into the abdominal cavity. The abdominal cavity was then insufflated with carbon oxide gas to a pressure of 20 mmHg. I then inserted a 5 mm trocar under direct vision. Findings were as previously dictated. I then injected through and through the pubic hairline, made a small incision here and inserted another 5 mm trocar under direct vision. Using harmonic scalpel I then took down the adhesions along the anterior abdominal wall. There were just mostly thin adhesions. I then placed the camera through the left lower quadrant trocar and using harmonic scalpel through the umbilical trocar I was able to take down the last of the adhesions. We were then able to see the pelvis well. The pelvis was examined and I could not find any evidence of a ovarian cyst. Everything seemed completely normal. I have examined the upper abdomen and there was no evidence of any cystic structures in the upper abdomen. Pelvis was then rinsed with normal saline and I injected approximately 20 cc of ropivacaine into the pelvis. The secondary trochars were then removed after letting the gas out of the abdomen. The incisions were closed with subcuticular 4-0 Monocryl suture. Sterile dressings were applied. She tolerated procedure well and was taken recovery room in excellent condition. All sponge, instruments, and needle counts were correct. The estimated blood loss was less than 25 cc. Condition: stable Disposition: PACU Specimens:: None Complications:: None
--- NOTE | 2021-10-05 17:42 | PC.NURSE ---
Pt has done well since returning to the floor. Pt has c/o SOB and shoulder pain x1 this shift. PRN dilaudid, PRN zofran administered and pt was placed on 2L NC. Pt states relief almost immediately. VSS. Pt has been encouraged to use incentive spirometer and to ambulate in the hallway. No other acute changes. Will monitor.
--- NOTE | 2021-10-05 18:55 | PC.NURSE ---
Pt ambulating in hallway at this time, w/ no difficulty. Gait and balance are both satisfactory.
[2021-10-06] VITALS: BP 96/58; PULSE 83; RESP 16; TEMP 36.9; O2SAT 100
--- NOTE | 2021-10-06 04:53 | PC.NURSE ---
Patient rested intermittently throughout shift. Patient still complaints of rt shoulder pain r/t gas. Patient medicated per JUN for pain and nausea. Patient refused 0400 VS stating he wanted to try and sleep. Patient has been on RA sats above 90%. Encouraged patient to use incentive spirometer.
[2021-10-06 05:04] VITALS: BMI 29.8
[2021-10-06 08:00] VITALS: BP 111/58; PULSE 82; RESP 14; TEMP 37; O2SAT 100
[2021-10-06 08:06] VITALS: BP 111/68; PULSE 56; TEMP 36.3
--- NOTE | 2021-10-06 08:06 | HMH.ANESII ---
[facility] Anesthesia Record Part II Discharge Time: 13:34 Destination: Obstetric PACU nurse assessment reviewed?: Yes Patient Condition:: Good Anesthesia Complications:: None Swallowing reflex intact?: Yes Cyanosis?: No Blood Pressure: 111/68 Pulse Rate: 56 Temperature: 97.4 F Mental Status: Alert & Oriented Pain level:: 3 Nausea and/or vomitting:: None Intake, IV Amount: 0
--- NOTE | 2021-10-06 10:36 | HMH.DCSUM ---
General - General Admission date:: 10/04/21 Discharge date: 10/06/21 HPI HPI: She is a 25-year-old lady who complains of onset of left lower quadrant pain yesterday morning at about 4 AM. She took Tylenol and Motrin and the pain was getting very severe. She came into the ER yesterday evening. Ultrasound showed that she had a 10 x 6 cm hemorrhagic ovarian cyst. She is admitted for pain relief and we will go ahead with a laparoscopic ovarian cystectomy today. Hospital Course Hospital Course: On October 05, 2021 she underwent a diagnostic laparoscopy and at the time of her laparoscopy there was no evidence of an ovarian cyst. She did have some omental adhesions from the umbilicus down to the bladder flap. She had some blood in her pelvis that was removed. She has done well postoperatively and has remained afebrile throughout her hospitalization. She is eating and drinking and ambulating. She has some shoulder pain as result of the gas but is otherwise doing well. Objective Vital signs: Temp Pulse Resp BP Pulse Ox 97.4 F L 56 L 14 111/68 100 10/06/21 08:06 10/06/21 08:06 10/06/21 08:00 10/06/21 08:06 10/06/21 08:00 no acute distress - *Routine HEENT Exam Head: Present: normocephalic Eye: Present: EOMI, PERRL ENT: Present: mucous membranes moist - *Routine Abdominal Exam Present: soft, normoactive bowel sounds. Absent: tenderness Comments: Her incisions are clean and dry DS: Diagnosis - Discharge Diagnosis (1) Hemorrhagic cyst of left ovary Status: Acute (2) Pelvic pain Status: Acute (3) Flank pain Status: Acute Discharge Plan - Patient Discharge Instructions ACTIVITY: Continue current activity DIET: continue same diet Patient Instructions: Ovarian Cyst, DI for Ovarian Cyst Removal, DI for Surgical Site Infection, Ovarian Cyst Removal -- Laparoscopic Surgery, DI for Pelvic Pain, DI for Flank Pain - Follow up Plan Disposition: Home, Self-Care Condition at discharge:: Stable Home Medications: Home Medications Medication Instructions Recorded Confirmed Type Brompheniramine/Pseudoephed/Dm 5 - 10 ml PO Q46H PRN #200 ml 05/20/21 10/05/21 Rx [Bromfed Dm Cough Syrup] Oxycodone HCl/Acetaminophen 1 tab PO Q4-6H PRN #20 tablet 10/06/21 Rx [Percocet 5/325mg tablet] Prescriptions/Medication Reconciliation: New Oxycodone HCl/Acetaminophen [Percocet 5/325mg tablet] 1 tab PO Q4-6H PRN #20 tablet PRN Reason: Severe Pain Continued Brompheniramine/Pseudoephed/Dm [Bromfed Dm Cough Syrup] 5 - 10 ml PO Q46H PRN #200 ml PRN Reason: Cough - Problem Reconciliation Problems Reviewed?: Yes
--- NOTE | 2021-10-07 16:48 | CARE MANAGER ---
Called and discussed post discharge status with patient. Patient states that she is doing much better. Continues to have a little bit of pain, but prescribed pain medication takes care of it. No needs at this time.
== END 2021-10-06 12:00 | disposition home or self-care (01) | DRG 743 ==
LOC: UTC 17:34 → ER 17:49 → 2ND 22:36
PROVIDERS: Emergency Medicine; Nurse Practitioner; Admitting Provider Nurse Practitioner Obstetrics & Gynecology; Emergency Provider Emergency Medicine; PCP Emergency Medicine; Visit Provider Nurse Practitioner Obstetrics & Gynecology
PROC: 0TTB4ZZ Resection of Bladder, Percutaneous Endoscopic Approach (ICD-10-PCS; CPT 51999; principal; 2021-10-05 12:00)
DX: N83.202 Unspecified ovarian cyst, left side (principal)
CPT/HCPCS: 49320; 36415; 74176; 76830; 80048; 80053; 81003; 81025; 85025; 85651; 99285; C9803; J2405; U0003; U0005

== ENCOUNTER → 2022-01-04 14:50 | Outpatient (CLI) | payer OTHER, SELFPAY ==
--- NOTE | 2022-01-04 14:54 | US_ITS ---
FINAL REPORT CLINICAL HISTORY: pelvic pain FINDINGS: Transvaginal sonographic images of the pelvis were obtained. The uterus measures 8.0 x 5.6 x 4.2 cm. The endometrium measures 11, which is within normal limits. No uterine mass is identified. The right ovary measures 3.2 cm in length and left ovary measures 5.1 cm in length. Normal blood flow seen to the ovaries. There is a 2.3 cm probable complicated cyst in the left ovary. There are multiple small right ovarian follicles. There is no evidence of free fluid. IMPRESSION: 2.3 cm probable complicated cyst in the left ovary. Reviewed, Interpreted and Dictated by Noel Lance III, MD Transcribed by Yony Ding Authenticated and [facility]
== END ==
PROVIDERS: PCP Emergency Medicine; Visit Provider Obstetrics & Gynecology
DX: R10.2 Pelvic and perineal pain (principal)
CPT/HCPCS: 76830

== ENCOUNTER → 2022-01-13 17:30 | Outpatient (CLI) | payer OTHER, SELFPAY ==
[2022-01-13 17:35] VITALS: BMI 28.3
== END | disposition home or self-care (01) ==
PROVIDERS: PCP Emergency Medicine; Visit Provider Nurse Practitioner
DX: L50.8 Other urticaria (principal)

== ENCOUNTER 2023-01-15 08:36 | Emergency (ER) | payer OTHER, SELFPAY ==
[2023-01-15] VITALS (12 sets, daily range): BP systolic 92–141; BP diastolic 47–90; PULSE 62–104; RESP 16–17; TEMP 36.5–36.8; O2SAT 96–100; BMI 27.1
[2023-01-15 09:01] LABS: Microscopic, Urine URINE MICROSCOPIC (MICROSCOPIC)
--- NOTE | 2023-01-15 09:02 | PC.NURSE ---
Dr. Rainey at BS for pt eval
[2023-01-15 09:05] LABS: Basophils # 0.1 K/mm3 (0-0.2); Basophils % 0.8 % (0.1-2.0); Eosinophils # 0.2 K/mm3 (0.0-0.4); Hematocrit 38.4 % (37.0-47.0); Hemoglobin 12.7 g/dL (12.2-16.2); Lymphocytes # 3.4 K/mm3 (0.7-4.5); Lymphocytes % 30.8 % (10-50); Mean Corpuscular Volume 81.6 fl (81-99); Mean Platelet Volume 7.6 fl (7.4-10.4); Monocytes # 0.5 K/mm3 (0.1-1.0); Monocytes % 4.9 % (1.7-9.3); Neutrophils # 6.8 K/mm3 (1.8-7.8); Neutrophils % 61.4 % (37.0-80.0); Platelet Count 317 K/mm3 (142-424); Red Blood Count 4.71 M/mm3 (4.20-5.40); Red Cell Distribution Width 13.3 % (11.5-17.5); White Blood Count 11.1 K/mm3 (4.8-10.8)
--- NOTE | 2023-01-15 09:06 | US_ITS ---
PROCEDURE INFORMATION: Exam: US Pelvis, Transvaginal Exam date and time: 01/15/2023 9:43 AM Age: 27 years old Clinical indication: Pelvic pain; Additional info: Llq pain, previous large cyst LABS AND CLINICAL REPORTS: Last menstrual period start date: 12/19/2022 TECHNIQUE: Imaging protocol: Real-time transvaginal pelvic ultrasound with image documentation. Transvaginal imaging was used for better evaluation of the endometrium, adnexa, and/or cervix. COMPARISON: US TRANSVAGINAL 01/04/2022 3:25 PM FINDINGS: Uterus: Uterus measures 8.3 cm x 5.3 cm x 3.5 cm. Several nabothian cysts are noted. The endometrial thickness is normal measuring 7 mm. Right ovary/adnexa: Right ovary measures 3.5 cm x 3 cm x 1.5 cm. Right ovarian volume is 8.5 mL. Left ovary/adnexa: The left ovary has not been measured. Urinary bladder: The urinary bladder volume is severely distended measuring 692 mL. The postvoid bladder volume measures 1.4 mL. Intraperitoneal space: No free fluid. IMPRESSION: Severely distended urinary bladder with normal postvoid volume. Otherwise unremarkable study.
--- NOTE | 2023-01-15 09:06 | PC.NURSE ---
notified rad of u/s order
--- NOTE | 2023-01-15 09:08 | HMH.EDGENADL ---
Discharge Plan Disposition Patient Disposition: Home, Self-Care Chief Complaint: Abdominal Pain Prescriptions Prescriptions: No Action bupropion HCl 300 mg tablet extended release 24 hr 300 mg PO DAILY Qty: 30 2RF montelukast 10 mg tablet 10 mg PO DAILY levocetirizine 5 mg tablet 5 mg PO DAILY triamcinolone acetonide 0.1 % cream 1 applic topical DAILY famotidine 20 mg tablet 20 mg PO DAILY naproxen 500 mg tablet,delayed release (DR/EC) 500 mg PO BID PRN (Reason: pain) Qty: 20 1RF ondansetron HCl 4 mg tablet 4 mg PO Q8H PRN (Reason: nausea and vomiting) Qty: 20 0RF Referrals Follow up/Referrals: Anselmo Crystal MD [Primary Care Provider] - See instructions Activity Restrictions/Add. Instructions Additional Instructions/Restrictions: At this time is felt you are safe to be discharged home. If new or worsening symptoms please do not hesitate to return the emergency department. Please continue to follow-up with Dr. Cotton as discussed in the coming days. Clinical Impressions Clinical Impression: Acute urinary retention Discharge ED Provider: Carlos Rainey General Adult HPI General Chief complaint: Abdominal Pain Stated complaint: abd pain Time Seen by Provider: 01/15/23 08:50 Mode of Arrival: Ambulatory Source of Information: Patient Limitations: No Limitations Description of Symptoms (Recalled from ER Triage Doc. by RN): Pt arrives via private vehicle. States that last week she and her children were diagnosed with strep and she was started on a zpack Sunday. Since Sunday she says she has had a painful cough with green sputum and sometimes feels short of breath. History of Present Illness HPI narrative: Patient 27-year-old female with past medical history of previous left-sided ovarian cyst with previous rupture who presents emergency department for evaluation of left lower quadrant abdominal pain. Onset was acute, occurring . Progressively worse, moderate to severe in intensity. No associated dysuria or hematuria, no vaginal discharge. Last menstrual period less than 1 month ago. There is associated vomiting. No other acute complaints at this time. Related Data Home Medications Medication Instructions Recorded Confirmed famotidine 20 mg tablet 20 mg PO DAILY 12/26/21 04/10/22 levocetirizine 5 mg tablet 5 mg PO DAILY 12/26/21 04/10/22 montelukast 10 mg tablet 10 mg PO DAILY 12/26/21 04/10/22 triamcinolone acetonide 0.1 % 1 applic topical DAILY 12/26/21 04/10/22 topical cream Previous Rx's Medication Instructions Recorded bupropion HCl 300 mg 24 hr tablet, 300 mg PO DAILY #30 tabs 10/28/21 extended release naproxen 500 mg tablet,delayed 500 mg PO BID PRN pain #20 tabs 12/26/21 release ondansetron HCl 4 mg tablet 4 mg PO Q8H PRN nausea and 01/05/22 vomiting #20 tabs Allergies Allergy/AdvReac Type Severity Reaction Status Date / Time No Known Allergies Allergy Verified 04/10/22 11:59 [facility] Disclaimer: The information contained in this section may have been updated after the patient was seen, as this information can be updated by other users. Medical History (Updated 01/15/23 @ 13:57 by Carlos Rainey MD) Endometriosis Hemorrhagic cyst of left ovary History of nephrolithiasis Surgical History History of Social History Smoking Status: Never smoker alcohol intake: current substance use type: denies use current occupational status: employed Travel in the last 8 weeks: None household members: spouse and children ROS Obtained: Yes Systems reviewed as appropriate & no additional complaints except as documented Physical Exam General General appearance: alert and in no apparent distress Head Head exam: atraumatic and normocephalic Eye Eye exam: Present PERRL and EOMI ENT ENT exam:
[2023-01-15 09:09] LABS: Appearance,Urine CLEAR (Clear); Bilirubin,Urine Negative (Negative); Blood, Urine Negative (Negative); Color,Urine YELLOW (Yellow); Glucose,Urine (UA) Negative (Negative); Ketones,Urine Negative (Negative); Leukocyte Esterase,Urine Negative (Negative); Nitrate,Urine Negative (Negative); Protein,Urine Negative (Negative); Urobilinogen,Urine 0.2 EU/dl (0.2)
[2023-01-15 09:15] LABS: Urine Pregnancy, HCG Qual. Negative (Negative)
[2023-01-15 09:16] LABS: Alanine Aminotransferase 22 U/L (12-78); Albumin Level 4.6 g/dl (3.5-5.0); Albumin/Globulin Ratio 1.4 (1.1-1.8); Alkaline Phosphatase 71 U/L (38-126); Anion Gap 14.5 mEq/L (5-15); Aspartate Amino Transferase 36 U/L (14-36); Bilirubin,Total 0.7 mg/dl (0.2-1.3); Blood Urea Nitrogen 11 mg/dl (7-17); Calcium 9.1 mg/dl (8.4-10.2); Carbon Dioxide 22 mmol/L (22.0-30.0); Chloride 107 mmol/L (98-107); Creatinine Clearance Estimated 97 mL/min (50-200); Estimated Glomerular Filt Rate 87 ml/min (>60); GFR (African American) 106 ML/MIN (>60); Globulin 3.2 g/dL (1.3-3.2); Glucose 102 mg/dl (74-100); Potassium 3.5 mmoL/L (3.5-5.1); Sodium 140 mmol/L (136-145); Total Protein,Serum 7.8 g/dl (6.3-8.2)
--- NOTE | 2023-01-15 09:21 | PC.NURSE ---
pt call light in reach, given pillow for comfort, medicated per JUN. 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
--- NOTE | 2023-01-15 09:33 | PC.NURSE ---
rounded on pt at this time, reports pain medication has started to help, pain improved but not gone.
--- NOTE | 2023-01-15 09:34 | PC.NURSE ---
pt to u/s via wheelchair
--- NOTE | 2023-01-15 10:03 | PC.NURSE ---
Per U/S tech, pt has voided but bladder still very enlarged and requesting urinary catheter to ensure bladder is drained adequately. State ok to place but do not anchor.
--- NOTE | 2023-01-15 10:23 | PC.NURSE ---
Per d/t urinary cath yielding 1,400ml thus far states to anchor the smith cath.
--- NOTE | 2023-01-15 10:28 | PC.NURSE ---
From US via wheelchair
--- NOTE | 2023-01-15 10:30 | PC.NURSE ---
to u/s room per rad staff request r/t bladder looking full on u/s, states looks to be approx 690 mL in bladder. ER MD gave verbal order to drain bladder for u/s and then have rad staff rescan pt after bladder drained. no difficulties noted with catheter insertion, clear/yellow urine noted. per ER MD Brigid ryan smith catheter r/t uop 1400 in smith bag.
--- NOTE | 2023-01-15 10:34 | PC.NURSE ---
pt has no other needs at this time. Call rosado within reach. Pt given a pillow and warm blanket for comfort
--- NOTE | 2023-01-15 10:40 | CT_ITS ---
FINAL REPORT TECHNIQUE: After the administration of intravenous contrast, axial images were obtained through the abdomen and pelvis by computed tomography. This study was performed with technique to keep radiation doses as low as reasonably achievable, (ALARA). Individualized dose reduction techniques using automated exposure control or adjustment of the MA and/or KV according to the patient's size were employed. CLINICAL HISTORY: lower abd pain, urinary retention COMPARISON: 10/04/2021 FINDINGS: Abdomen: The lung bases are clear. The liver is normal in size and attenuation. Gallbladder is present. The spleen is unremarkable. The adrenals are normal. The pancreas is unremarkable. The kidneys enhance appropriately. The aorta is normal in caliber. There is no free fluid or adenopathy. There is no evidence of bowel obstruction. Pelvis: The appendix is normal. Uterus is eccentric to the left. Previously seen fluid and stranding adjacent to the left ovary has significantly improved. The urinary bladder is decompressed with a Villanueva catheter. There is no free fluid or adenopathy. IMPRESSION: Significant improvement of previously seen fluid and stranding adjacent to the left ovary. No acute process. Reviewed, Interpreted and Dictated by Fabio Cross MD Transcribed by Marina Goyal Authenticated and [facility]
--- NOTE | 2023-01-15 10:53 | PC.NURSE ---
To CT via wheelchair
--- NOTE | 2023-01-15 10:59 | PC.NURSE ---
pt return from CT via wheelchair
--- NOTE | 2023-01-15 11:17 | PC.NURSE ---
checked on pt she was sleeping in bed,call light at bs
--- NOTE | 2023-01-15 12:11 | PC.NURSE ---
contacted rad to check on status of ct result, rad staff reports it is locked status
--- NOTE | 2023-01-15 12:46 | PC.NURSE ---
rounded on pt, updated pt on POC pt states no needs at this time call rosado in reach
--- NOTE | 2023-01-15 12:51 | PC.NURSE ---
preliminary ct report given to JASKARAN Rainey
--- NOTE | 2023-01-15 13:00 | PC.NURSE ---
Called [facility] office for him to speak with
--- NOTE | 2023-01-15 13:56 | PC.NURSE ---
call rad for a disk to be made for pt to take with her for follow up appt with
== END 2023-01-15 14:26 | disposition home or self-care (01) ==
PROVIDERS: Emergency Provider Emergency Medicine; PCP Emergency Medicine
DX: R10.32 Left lower quadrant pain (principal); R33.9 Retention of urine, unspecified
CPT/HCPCS: 51702; 74177; 76830; 80053; 81001; 81025; 85025; 96361; 96374; 96375; 96376; 99285; J2405; Q9967

== ENCOUNTER 2023-01-15 20:48 | Emergency (ER) | payer OTHER, SELFPAY ==
[2023-01-15] VITALS (7 sets, daily range): BP systolic 98–139; BP diastolic 54–76; PULSE 66–89; RESP 16–20; TEMP 36.8–36.9; O2SAT 92–100; BMI 27.1
--- NOTE | 2023-01-15 22:05 | PC.NURSE ---
Pt provided with heating pad per request.
[2023-01-15 22:35] LABS: Basophils # 0.1 K/mm3 (0-0.2); Basophils % 0.7 % (0.1-2.0); Eosinophils # 0.2 K/mm3 (0.0-0.4); Eosinophils % 2.4 % (0.1-12.0); Hematocrit 37.3 % (37.0-47.0); Hemoglobin 12.3 g/dL (12.2-16.2); Lymphocytes # 3.3 K/mm3 (0.7-4.5); Lymphocytes % 36.9 % (10-50); Mean Corpuscular Hemoglobin 27.3 pg (27.0-31.2); Mean Corpuscular Volume 82.7 fl (81-99); Mean Platelet Volume 8.2 fl (7.4-10.4); Monocytes # 0.5 K/mm3 (0.1-1.0); Monocytes % 5.2 % (1.7-9.3); Neutrophils # 4.9 K/mm3 (1.8-7.8); Neutrophils % 54.8 % (37.0-80.0); Platelet Count 311 K/mm3 (142-424); Red Blood Count 4.51 M/mm3 (4.20-5.40); Red Cell Distribution Width 13.4 % (11.5-17.5); White Blood Count 8.9 K/mm3 (4.8-10.8)
[2023-01-15 22:41] LABS: Alanine Aminotransferase 21 U/L (12-78); Albumin Level 4.7 g/dl (3.5-5.0); Albumin/Globulin Ratio 1.4 (1.1-1.8); Alkaline Phosphatase 62 U/L (38-126); Anion Gap 12.2 mEq/L (5-15); Aspartate Amino Transferase 33 U/L (14-36); Blood Urea Nitrogen 11 mg/dl (7-17); Calcium 9.3 mg/dl (8.4-10.2); Carbon Dioxide 29 mmol/L (22.0-30.0); Chloride 103 mmol/L (98-107); Creatinine Clearance Estimated 101 mL/min (50-200); Estimated Glomerular Filt Rate 76 ml/min (>60); GFR (African American) 92 ML/MIN (>60); Globulin 3.4 g/dL (1.3-3.2); Glucose 115 mg/dl (74-100); Potassium 3.2 mmoL/L (3.5-5.1); Sodium 141 mmol/L (136-145); Total Protein,Serum 8.1 g/dl (6.3-8.2)
--- NOTE | 2023-01-15 23:45 | PC.NURSE ---
performed bladder scan, pt noted to have 4mls in bladder, provider aware
--- NOTE | 2023-01-15 23:46 | HMH.EDGENADL ---
Discharge Plan Disposition Patient Disposition: Home, Self-Care Condition: Good Prescriptions Prescriptions: New ondansetron HCl 4 mg tablet 4 mg PO Q8H PRN (Reason: nausea and vomiting) 5 Days Qty: 30 0RF oxycodone 5 mg tablet 5 mg PO Q8H PRN (Reason: pain) Qty: 12 0RF oxybutynin chloride 5 mg tablet 5 mg PO TID PRN (Reason: bladder spasms) Qty: 14 0RF No Action bupropion HCl 300 mg tablet extended release 24 hr 300 mg PO DAILY Qty: 30 2RF montelukast 10 mg tablet 10 mg PO DAILY levocetirizine 5 mg tablet 5 mg PO DAILY triamcinolone acetonide 0.1 % cream 1 applic topical DAILY famotidine 20 mg tablet 20 mg PO DAILY naproxen 500 mg tablet,delayed release (DR/EC) 500 mg PO BID PRN (Reason: pain) Qty: 20 1RF ondansetron HCl 4 mg tablet 4 mg PO Q8H PRN (Reason: nausea and vomiting) Qty: 20 0RF Referrals Follow up/Referrals: Anselmo Crystal MD [Primary Care Provider] - See instructions Activity Restrictions/Add. Instructions Additional Instructions/Restrictions: Please take Tylenol ibuprofen and oxycodone as needed for pain. Please take Zofran as needed for nausea. I have prescribed oxybutynin, it can help with bladder spasms. Recommend discontinuing the night before seeing urology as it may prevent your bladder from emptying normally. Clinical Impressions Clinical Impression: Bladder spasms, Abdominal pain Instructions Patient Instructions: DI for Acute Abdominal Pain Discharge ED Provider: Khurram Calderón General Adult HPI General Chief complaint: Abdominal Pain Stated complaint: Abd pain Time Seen by Provider: 01/15/23 21:21 Mode of Arrival: Ambulatory Source of Information: Patient Limitations: No Limitations Description of Symptoms (Recalled from ER Triage Doc. by RN): Pt was seen her today for abdominal pain and urinary retention. Sent home with smith in place, returns this evening with increased pain and spasms in her left lower back. Urine was clear per pt , now it apears jayson in color with small blood clots. Pt is afebrile experiencing episodes of N/V History of Present Illness HPI narrative: 27-year-old female presents with worsening left pelvic/flank pain. She was seen earlier today with similar symptoms, had a transvaginal ultrasound which showed enlarged right ovary as well as massively enlarged bladder. a Smith was placed. CT imaging during that visit showed no acute etiology of patient's symptoms. She was discharged after medications and symptomatic improvement with indwelling Smith. Urine studies clean at that time. Patient returned due to worsening pain. Reports that the urine is now somewhat jayson-colored. She reports that she has had urinary retention in the past associated with her and at one other time. She denies any numbness or weakness. Denies any neurologic changes such as fine motor movements, vision changes. No recent illness or infection. Related Data Home Medications Medication Instructions Recorded Confirmed famotidine 20 mg tablet 20 mg PO DAILY 12/26/21 04/10/22 levocetirizine 5 mg tablet 5 mg PO DAILY 12/26/21 04/10/22 montelukast 10 mg tablet 10 mg PO DAILY 12/26/21 04/10/22 triamcinolone acetonide 0.1 % 1 applic topical DAILY 12/26/21 04/10/22 topical cream Previous Rx's Medication Instructions Recorded bupropion HCl 300 mg 24 hr tablet, 300 mg PO DAILY #30 tabs 10/28/21 extended release naproxen 500 mg tablet,delayed 500 mg PO BID PRN pain #20 tabs 12/26/21 release ondansetron HCl 4 mg tablet 4 mg PO Q8H PRN nausea and 01/05/22 vomiting #20 tabs ondansetron HCl 4 mg tablet 4 mg PO Q8H PRN nausea and 01/15/23 vomiting 5 days #30 tabs oxybutynin chloride 5 mg tablet 5 mg PO TID PRN bladder spasms #14 01/15/23 tabs oxycodone 5 mg tablet 5 mg PO Q8H PRN pain #12 tabs 01/15/23 Allergies Allergy/AdvReac Type Severity Reaction Status Date / Time No Known Allergies Allergy
== END 2023-01-15 23:53 | disposition home or self-care (01) ==
PROVIDERS: Emergency Medicine; Emergency Provider Emergency Medicine; PCP Emergency Medicine
DX: R10.9 Unspecified abdominal pain (principal); N32.9 Bladder disorder, unspecified
CPT/HCPCS: 80053; 85025; 96372; 96374; 96375; 99284; J0131; J2405

== ENCOUNTER → 2023-02-27 10:28 | Outpatient (CLI) | payer OTHER, SELFPAY ==
[2023-02-27 10:44] LABS: Basophils # 0.1 K/mm3 (0-0.2); Basophils % 0.9 % (0.1-2.0); Eosinophils # 0.2 K/mm3 (0.0-0.4); Eosinophils % 2.3 % (0.1-12.0); Hematocrit 33.3 % (37.0-47.0); Hemoglobin 12.1 g/dL (12.2-16.2); Lymphocytes # 2.4 K/mm3 (0.7-4.5); Mean Corpuscular HGB Conc 36.2 g/dL (31.8-35.4); Mean Corpuscular Hemoglobin 29.2 pg (27.0-31.2); Mean Corpuscular Volume 80.7 fl (81-99); Mean Platelet Volume 8.1 fl (7.4-10.4); Monocytes # 0.3 K/mm3 (0.1-1.0); Monocytes % 4.8 % (1.7-9.3); Neutrophils # 3.9 K/mm3 (1.8-7.8); Neutrophils % 57.1 % (37.0-80.0); Platelet Count 293 K/mm3 (142-424); Red Blood Count 4.12 M/mm3 (4.20-5.40); White Blood Count 6.9 K/mm3 (4.8-10.8)
[2023-02-27 11:42] LABS: Alanine Aminotransferase 14 U/L (12-78); Albumin Level 4.6 g/dl (3.5-5.0); Albumin/Globulin Ratio 1.6 (1.1-1.8); Alkaline Phosphatase 53 U/L (38-126); Anion Gap 12.9 mEq/L (5-15); Aspartate Amino Transferase 28 U/L (14-36); Bilirubin,Total 0.8 mg/dl (0.2-1.3); Blood Urea Nitrogen 13 mg/dl (7-17); Calcium 9.7 mg/dl (8.4-10.2); Carbon Dioxide 26 mmol/L (22.0-30.0); Chloride 104 mmol/L (98-107); Estimated Glomerular Filt Rate 87 ml/min (>60); GFR (African American) 106 ML/MIN (>60); Globulin 2.8 g/dL (1.3-3.2); Glucose 91 mg/dl (74-100); Glucose,Fasting 91 mg/dl (74-100); Potassium 3.9 mmoL/L (3.5-5.1); Sodium 139 mmol/L (136-145); Total Protein,Serum 7.4 g/dl (6.3-8.2)
[2023-02-27 11:44] LABS: Hemoglobin A1C 5.1 % (4.0-6.0)
[2023-02-27 12:13] LABS: Thyroid Stimulating Hormone 2.45 uIU/mL (0.465-4.68)
[2023-02-28 11:04] LABS: FSH 5.2 mIU/mL (.); Insulin Level Total 8.3 uIU/mL (2.6-24.9); LH 33.4 mIU/mL (.)
[2023-03-03 04:14] LABS: Testosterone, Total, LC/MS 30 ng/dL (.)
[2023-03-04 12:30] LABS: Anti Mullerian Hormone (AMH) 7.87
== END ==
PROVIDERS: PCP Emergency Medicine; Visit Provider Obstetrics & Gynecology
DX: N92.6 Irregular menstruation, unspecified (principal); Z79.899 Other long term (current) drug therapy
CPT/HCPCS: 36415; 80053; 82397; 82670; 82947; 83001; 83002; 83036; 83525; 84403; 84443; 85025

== ENCOUNTER 2023-07-13 08:22 | Emergency (ER) | payer OTHER, SELFPAY ==
[2023-07-13 08:40] VITALS: BP 128/71; PULSE 74; RESP 19; TEMP 36.7; O2SAT 98; BMI 23.3
[2023-07-13 08:57] LABS: Apearance,Urine Turbid (Clear); Color,Urine Red (Yellow); Glucose,Urine (UA) 100 (Negative); Protein,Urine 1+ (Negative)
[2023-07-13 09:00] LABS: Bilirubin,Urine 1+ (Negative); Blood, Urine Negative (Negative); Ketones,Urine TRACE (Negative); UTC Leukocyte Esterase,Urine 3+ (Negative); UTC Nitrate,Urine Positive (Negative); Urobilinogen,Urine 4 EU/dl (0.2)
--- NOTE | 2023-07-13 09:22 | EXP.UTC ---
Discharge Plan Disposition Patient Disposition: Home, Self-Care Condition: Good Prescriptions Prescriptions: New cefdinir 300 mg capsule 300 mg PO BID Qty: 20 0RF phenazopyridine [Pyridium] 200 mg tablet 200 mg PO Q8H 2 Days Qty: 6 0RF No Action phenazopyridine 200 mg tablet 200 mg PO DAILY Patient Comments: TAKE ONE TABLET BY MOUTH EVERY 8 HOURS NEEDED FOR PAIN Referrals Follow up/Referrals: Hector De La Cruz DO [Primary Care Provider] - See instructions Activity Restrictions/Add. Instructions Additional Instructions/Restrictions: *Increase fluids. Water not Soda or Tea *Start antibiotic immediately and be sure to take as ordered for the FULL length of time although you should start to see improvement over the next 48 hours *Pyridium as needed Remember this medication will turn your urine . This is normal but it will stain what ever it gets on *You should not use Pyridium for more than 48 hours. If so , follow up with your primary physician to review urine culture and ensure that antibiotic is adequate for infection *Be SURE to follow up anytime for new or worsening symptoms with your family doctor. AND in 48 hours for urine culture results with your family doctor, if you do not have a doctor then you may call back to the [facility] for urine culture results and further treatment. We do recommend that you choose and establish care with a Primary Care Physician. ?AND follow up with them ?in 10-14 days to repeat UA to ensure infection is resolved and blood no longer present *Be sure to let your PCP know that we sent urine cultures from the [facility] so they can follow up to ensure that you area the on the correct antibiotic Call your doctor office and make appointment for 48 hours (2 days from today) ?to follow up and get the results of your urine culture and further treatment Clinical Impressions Clinical Impression: UTI (urinary tract infection) Instructions Patient Instructions: Urinary Tract Infection, DI for Urinary Tract Infection (UTI) Discharge ED Provider: Eliane Vazquez [facility] [place] HPI General Stated complaint: Pain while urinating Mode of Arrival: Ambulatory Source of Information: Patient Limitations: No Limitations Time Seen by Provider: 07/13/23 09:30 Description of Symptoms (Recalled from Triage Doc. by RN): PATIENT C/O PAIN AND FREQUENCY WITH URINATION X 2 DAYS HEENT Symptoms (Recalled from RN notes): No Resp Symptoms (Recalled from RN notes): No Skin Symptoms (Recalled from RN notes): No MS Symptoms (Recalled from RN notes): No Functional Status (Recalled from RN notes): WNL History of Present Illness Provider Complaint: Patient states that for the last couple of days she has been having urgency and frequency along with burning with urination so she took some left over pyridium she had and today she was still having symptoms so she came in Related Data Home Medications Medication Instructions Recorded Confirmed phenazopyridine 200 mg tablet 200 mg PO DAILY 07/13/23 07/13/23 Previous Rx's Medication Instructions Recorded cefdinir 300 mg capsule 300 mg PO BID #20 caps 07/13/23 phenazopyridine 200 mg tablet 200 mg PO Q8H pain 2 days #6 tabs 07/13/23 (Pyridium) Allergies Allergy/AdvReac Type Severity Reaction Status Date / Time No Known Allergies Allergy Verified 03/28/23 15:07 Worker's Comp Is this a Worker's Comp case?: No [facility] Disclaimer: The information contained in this section may have been updated after the patient was seen, as this information can be updated by other users. 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 Dyspareunia in female Endometriosis Hemorrhagic cyst of left ovary History of nephrolithiasis Irregular menstrual cycle Patient desires Surgical History History of Family History Other No significant family history Social History Smoking Status: Never smoker alcohol intake: current substance use type: denies use current occupational status: employed Travel in the last 8 weeks: None household members: spouse and children ROS Obtained: Yes All systems reviewed & no additional complaints except as documented and Yes Systems reviewed as appropriate & no additional complaints except as documented Constitutional Constitutional: Reports system reviewed and no additional complaints, except as documented and Reports as per HPI Eyes Eyes: Reports system reviewed and no additional complaints, except as documented and Reports as per HPI ENT Ears, Nose, Mouth, and Throat: Reports system reviewed and no additional complaints, except as documented and Reports as per HPI Cardiovascular Cardiovascular: Reports system reviewed and no additional complaints, except as documented and Reports as per HPI Respiratory Respiratory: Reports system reviewed and no additional complaints, except as documented and Reports as per HPI Gastrointestinal Gastrointestingal: Reports system reviewed and no additional complaints, except as documented and as per HPI Genitourinary Female Genitourinary: Reports system reviewed and no additional complaints, except as documented, Reports as per HPI, Reports dysuria, Reports urinary frequency and Reports urinary urgency Physical Exam General General appearance: alert and in no apparent distress ENT ENT exam: Present mucous membranes moist Respiratory Respiratory exam: Present normal lung sounds bilaterally; Absent respiratory distress or wheezes Cardiovascular Cardiovascular exam: Present regular rate, normal rhythm and normal heart sounds Neurological Exam Neurological exam: Present alert, oriented X3 and normal gait Medical Decision Making Reese Inquiry Pt receiving controlled substance: No Reese was queried for this patient: No Vital Signs: 07/13/23 08:40 Temperature 98.1 F Temperature Source Oral Pulse Rate [Left Brachial] 74 Respiratory Rate 19 Blood Pressure [Left Arm] 128/71 Blood Pressure Mean [Left Arm] 90 Blood Pressure Source [Left Arm] Automatic Cuff Blood Pressure Position [Left Arm] Sitting 02 Sat by Pulse Oximetry 98 Oxygen Delivery Method Room Air Lab Data Lab results reviewed: Yes I reviewed the patient's lab results. Lab Results 07/13/23 08:49: Urine Color Red, Urine Appearance Turbid, Urine pH 5.0, Ur Specific [place] 1.010, Urine Protein 1+, Urine Glucose (UA) 100, Urine Ketones Trace, Urine Blood Negative, Urine Nitrate Positive A, Urine Bilirubin 1+ A, Urine Urobilinogen 4, Ur Leukocyte Esterase 3+ A Orders (Tests/Meds): ORDERS Category Date Time Status Urine Culture Stat Micro 07/13/23 08:56 Ordered
[2023-07-13 09:24] VITALS: BP 128/71; PULSE 74; RESP 19; TEMP 36.7; O2SAT 98
== END 2023-07-13 09:31 | disposition home or self-care (01) ==
PROVIDERS: Emergency Provider Nurse Practitioner; PCP Internal Medicine
DX: N39.0 Urinary tract infection, site not specified (principal); R35.0 Frequency of micturition; N80.9 Endometriosis, unspecified
CPT/HCPCS: 81003; 87086; 99212; 99214; G0463

== ENCOUNTER 2023-07-17 11:47 | Outpatient (CLI) | payer OTHER, SELFPAY ==
[2023-07-17 11:53] LABS: Microscopic, Urine URINE MICROSCOPIC (MICROSCOPIC)
[2023-07-17 12:26] LABS: Appearance,Urine CLEAR (Clear); Bilirubin,Urine Negative (Negative); Blood, Urine Negative (Negative); Color,Urine YELLOW (Yellow); Glucose,Urine (UA) Negative (Negative); Ketones,Urine Negative (Negative); Leukocyte Esterase,Urine Negative (Negative); Nitrate,Urine Negative (Negative); PH,Urine 6.5 (5.0-8.5); Protein,Urine Negative (Negative); Urobilinogen,Urine 0.2 EU/dl (0.2)
[2023-07-17 12:27] LABS: Basophils # 0.1 K/mm3 (0-0.2); Eosinophils # 0.2 K/mm3 (0.0-0.4); Eosinophils % 2.7 % (0.1-12.0); Hematocrit 38.3 % (37.0-47.0); Hemoglobin 12.6 g/dL (12.2-16.2); Lymphocytes # 3.3 K/mm3 (0.7-4.5); Lymphocytes % 39.4 % (10-50); Mean Corpuscular HGB Conc 32.9 g/dL (31.8-35.4); Mean Corpuscular Volume 88.1 fl (81-99); Mean Platelet Volume 7.8 fl (7.4-10.4); Monocytes # 0.4 K/mm3 (0.1-1.0); Monocytes % 4.9 % (1.7-9.3); Neutrophils # 4.3 K/mm3 (1.8-7.8); Neutrophils % 52.1 % (37.0-80.0); Platelet Count 310 K/mm3 (142-424); Red Blood Count 4.35 M/mm3 (4.20-5.40); Red Cell Distribution Width 13.3 % (11.5-17.5); White Blood Count 8.3 K/mm3 (4.8-10.8)
[2023-07-17 12:46] LABS: Bacteria,Urine Trace /lpf; Mucus,Urine Trace /lpf; RBC,Urine Occasional #/hpf (0-3)
[2023-07-17 12:48] LABS: Anion Gap 15.8 mEq/L (5-15); Blood Urea Nitrogen 14 mg/dl (7-17); Calcium 9.3 mg/dl (8.4-10.2); Carbon Dioxide 23 mmol/L (22.0-30.0); Chloride 105 mmol/L (98-107); Estimated Glomerular Filt Rate 87 ml/min (>60); GFR (African American) 106 ML/MIN (>60); Glucose 90 mg/dl (74-100); Potassium 3.8 mmoL/L (3.5-5.1); Sodium 140 mmol/L (136-145)
[2023-07-17 13:08] LABS: T4 (Thyroxine) 7.7 ug/dl (5.53-11.0)
[2023-07-17 13:21] LABS: Thyroid Stimulating Hormone 2.02 uIU/mL (0.465-4.68)
[2023-07-18 08:40] LABS: Triiodothyronine (T3) Total 116 ng/dL (71-180)
== END 2023-07-17 23:59 ==
LOC: LAB 11:47
PROVIDERS: PCP Internal Medicine; Visit Provider Internal Medicine
DX: N39.0 Urinary tract infection, site not specified (principal); Z79.899 Other long term (current) drug therapy
CPT/HCPCS: 36415; 80048; 81001; 84436; 84443; 84480; 85025

== ENCOUNTER 2023-07-18 07:31 | Outpatient (CLI) | payer OTHER, SELFPAY ==
--- NOTE | 2023-07-18 | CA_ITS ---
APPROVED REPORT EXAM: Comprehensive 2D, Doppler, and color-flow Echocardiogram Windows Architect: Kelley Gomez CRT Ht: 5 ft 2 in Wt: 140lbs BSA: 1.64 BP: 90/60 mmHg Indications: Chest Pain, Shortness of Breath 2D Dimensions LA Volume 11.70 mL LA Volume Index 7.00 mL/m2 (M/F) 16-34 M-Mode Dimensions RVDd 2.09 cm (0.9-2.6) LA Diam 2.75 cm (1.9-4.0) LVDd 4.88 cm (3.5-5.7) LVDs 3.31 cm (3.5-5.7) IVSd 1.02 cm (0.6-1.1) PWd 0.55 cm (0.6-1.1) EF (Teich) 60.20% FS 32.20% EDV (Teich) 111.70 mL TAPSE 2.17 (<1.7) ESV (Teich) 44.50 mL LV Diastology E Decel Time 267 (160-240 msec) E/A Ratio 1.46 MED A' 7.90 cm/s LAT A' 7.80 cm/s Aortic Valve AO Peak GR. 6.40 mmHg Mitral Valve MV A Velocity 54.0 (40-130 cm/s) E/A Ratio 1.46 Pulmonary Valve PV Peak Velocity 126.0 (50-150 cm/s) Tricuspid Valve TR P. Velocity 221.00 cm/s RAP Estimate 10.00 mmHg RVSP 29.60 mmHg Left Ventricle The left ventricle is normal size. The left ventricular systolic function is normal. The left ventricular ejection fraction is within the normal range. There is normal left ventricular wall thickness. There is normal LV segmental wall motion. The left ventricular diastolic function is normal. LVEF is 55%. Right Ventricle The right ventricle is normal size. The right ventricular systolic function is normal. Atria The left atrium size is normal. The right atrium size is normal. There is no Doppler evidence of interatrial shunt. Aortic Valve The aortic valve opens well. There is no aortic valvular stenosis. No aortic regurgitation is present. Mitral Valve The mitral valve is normal in structure. No evidence of mitral valve stenosis. There is no mitral valve regurgitation noted. Tricuspid Valve The tricuspid valve leaflets are thin and pliable. Trace tricuspid regurgitation. RVSP is normal. Pulmonic Valve The pulmonary valve is normal in structure. Trace pulmonic regurgitation. Great Vessels The aortic root is normal in size. The ascending aorta is normal in size. IVC is normal in size and collapses >50% with inspiration. Pericardium There is no pericardial effusion. Other Information Study Quality: Adequate Conclusion Normal biventricular systolic function. No significant valvular stenosis or regurgitation. Electronically signed by : Cesilia Marx MD 07/19/2023 13:07:09
== END 2023-07-18 23:59 ==
LOC: RT 07:31
PROVIDERS: PCP Internal Medicine; Visit Provider Internal Medicine
DX: R00.0 Tachycardia, unspecified (principal)
CPT/HCPCS: 93306

== ENCOUNTER 2023-08-01 12:54 | Outpatient (CLI) | payer OTHER, SELFPAY ==
[2023-08-01 12:52] LABS: Basophils # 0.1 K/mm3 (0-0.2); Basophils % 1.5 % (0.1-2.0); Eosinophils # 0.2 K/mm3 (0.0-0.4); Eosinophils % 2.1 % (0.1-12.0); Hematocrit 35.6 % (37.0-47.0); Hemoglobin 11.7 g/dL (12.2-16.2); Lymphocytes # 3.1 K/mm3 (0.7-4.5); Lymphocytes % 38.1 % (10-50); Mean Platelet Volume 7.8 fl (7.4-10.4); Monocytes # 0.4 K/mm3 (0.1-1.0); Monocytes % 4.5 % (1.7-9.3); Neutrophils # 4.4 K/mm3 (1.8-7.8); Neutrophils % 53.8 % (37.0-80.0); Platelet Count 287 K/mm3 (142-424); Red Blood Count 4.19 M/mm3 (4.20-5.40); White Blood Count 8.1 K/mm3 (4.8-10.8)
[2023-08-01 14:22] LABS: Chloride 107 mmol/L (98-107); Potassium 4.3 mmoL/L (3.5-5.1); Sodium 140 mmol/L (136-145)
[2023-08-01 14:25] LABS: Alanine Aminotransferase 14 U/L (12-78); Albumin Level 4.4 g/dl (3.5-5.0); Albumin/Globulin Ratio 1.8 (1.1-1.8); Alkaline Phosphatase 60 U/L (38-126); Anion Gap 9.3 mEq/L (5-15); Aspartate Amino Transferase 29 U/L (14-36); Bilirubin,Total 0.6 mg/dl (0.2-1.3); Blood Urea Nitrogen 13 mg/dl (7-17); Carbon Dioxide 28 mmol/L (22.0-30.0); Estimated Glomerular Filt Rate 87 ml/min (>60); GFR (African American) 106 ML/MIN (>60); Globulin 2.4 g/dL (1.3-3.2); Total Protein,Serum 6.8 g/dl (6.3-8.2)
[2023-08-01 14:26] LABS: Calcium 9.5 mg/dl (8.4-10.2); Glucose 92 mg/dl (74-100)
[2023-08-01 14:31] LABS: C-Reactive Protein 0.6 mg/L (0-4)
== END 2023-08-01 23:59 ==
LOC: LAB.DROPOF 12:54
PROVIDERS: PCP Nurse Practitioner Family; Visit Provider Nurse Practitioner Family
DX: R59.0 Localized enlarged lymph nodes (principal)
CPT/HCPCS: 80053; 85025; 86140

== ENCOUNTER 2023-08-03 07:11 | Outpatient (CLI) | payer OTHER, SELFPAY ==
--- NOTE | 2023-08-03 07:12 | CT_ITS ---
FINAL REPORT TECHNIQUE: Postcontrast axial images through the abdomen and pelvis were performed. This study was performed with techniques to keep radiation doses as low as reasonably achievable, (ALARA). Individualized dose reduction techniques using automated exposure control or adjustment of mA and/or kV according to the patient's size were employed. CLINICAL HISTORY: RLQ abd pain, lymphadenopathy COMPARISON: 01/15/2023 FINDINGS: Abdomen: The lung bases are clear. The liver is normal in size and attenuation. The spleen is unremarkable. The adrenals are normal. The pancreas is unremarkable. The kidneys enhance appropriately. The aorta is normal in caliber. No free fluid or adenopathy is identified. No findings for mechanical bowel obstruction are identified. Pelvis: The appendix is normal. There are multiple fluid-filled small bowel loops in a nonspecific pattern, may represent enteritis. The urinary bladder is unremarkable. There is a small to moderate amount of free fluid, may be physiologic or reactive. There is no evidence of adenopathy. IMPRESSION: Possible enteritis. Reviewed, Interpreted and Dictated by Noel Lance III, MD Transcribed by Jes Flores Authenticated and [facility]
[2023-08-03] MEDS: SODIUM CHLORIDE 0.9% 10ML SYR (RAD ONLY) 10 ML IV (07:33)
[2023-08-03] MEDS: IOPAMIDOL-370 (76%);100ML BOTTLE 75 ML IV (07:33)
== END 2023-08-03 23:59 ==
LOC: RAD 07:12
PROVIDERS: PCP Nurse Practitioner Family; Visit Provider Nurse Practitioner Family
DX: R10.31 Right lower quadrant pain (principal); R59.0 Localized enlarged lymph nodes
CPT/HCPCS: 74177; Q9967

== ENCOUNTER 2023-11-06 08:22 | Outpatient (CLI) | payer OTHER, SELFPAY ==
--- NOTE | 2023-11-06 08:27 | US_ITS ---
FINAL REPORT CLINICAL HISTORY: RLQ mass FINDINGS: Limited sonographic images of the right groin were obtained. There is a 2.0 x 1.5 x 1.0 cm ovoid hypoechoic mass in the right inguinal region, may represent adenopathy or other mass. This does not have the appearance of reactive no. IMPRESSION: Mass at the area of interest as detailed above. Reviewed, Interpreted and Dictated by Noel Lance III, MD Transcribed by Jes Flores Authenticated and [facility]
== END 2023-11-06 23:59 | disposition home or self-care (01) ==
LOC: RAD 08:23
PROVIDERS: PCP Nurse Practitioner Family; Visit Provider Nurse Practitioner Family
DX: R10.31 Right lower quadrant pain (principal); R19.00 Intra-abdominal and pelvic swelling, mass and lump, unspecified site
CPT/HCPCS: 76882

== ENCOUNTER 2023-12-26 11:07 | Outpatient (CLI) | payer OTHER, SELFPAY | END 2023-12-26 23:59 | disposition home or self-care (01) | LOC: LAB.DROPOF 12-27 11:07 | PROVIDERS: PCP Nurse Practitioner Family; Visit Provider Nurse Practitioner Family | DX: J02.9 Acute pharyngitis, unspecified (principal) | CPT/HCPCS: 87070 ==

== ENCOUNTER 2024-05-08 10:15 | Outpatient (CLI) | payer OTHER, SELFPAY ==
[2024-05-08 11:53] LABS: HCG,Quantitative 119 mIU/ml (0-5.42)
[2024-05-09 08:14] LABS: Progesterone 21.7 ng/mL (.)
== END 2024-05-08 23:59 | disposition home or self-care (01) ==
LOC: LAB 10:17
PROVIDERS: PCP Nurse Practitioner Family; Visit Provider Obstetrics & Gynecology
DX: Z32.01 Encounter for pregnancy test, result positive (principal)
CPT/HCPCS: 36415; 84144; 84702

== ENCOUNTER 2024-05-10 08:19 | Outpatient (CLI) | payer OTHER, SELFPAY ==
[2024-05-10 10:39] LABS: HCG,Quantitative 298 mIU/ml (0-5.42)
== END 2024-05-10 23:59 | disposition home or self-care (01) ==
LOC: LAB 08:20
PROVIDERS: PCP Nurse Practitioner Family; Visit Provider Obstetrics & Gynecology
DX: Z34.81 Encounter for supervision of other normal pregnancy, first trimester (principal)
CPT/HCPCS: 36415; 84702

== ENCOUNTER 2024-06-12 08:52 | Outpatient (CLI) | payer OTHER, SELFPAY ==
[2024-06-12 09:13] LABS: Basophils # 0.1 K/mm3 (0-0.2); Basophils % 0.6 % (0.1-2.0); Eosinophils # 0.2 K/mm3 (0.0-0.4); Eosinophils % 1.9 % (0.1-12.0); Hematocrit 33.6 % (37.0-47.0); Hemoglobin 11.4 g/dL (12.2-16.2); Lymphocytes # 2.4 K/mm3 (0.7-4.5); Lymphocytes % 26.3 % (10-50); Mean Corpuscular HGB Conc 33.9 g/dL (31.8-35.4); Mean Corpuscular Hemoglobin 27.7 pg (27.0-31.2); Mean Corpuscular Volume 81.8 fl (81-99); Mean Platelet Volume 9.3 fl (7.4-10.4); Monocytes # 0.6 K/mm3 (0.1-1.0); Neutrophils # 5.8 K/mm3 (1.8-7.8); Neutrophils % 63.9 % (37.0-80.0); Platelet Count 256 K/mm3 (142-424); Red Blood Count 4.11 M/mm3 (4.20-5.40); Red Cell Distribution Width 12.1 % (11.5-17.5); White Blood Count 9.1 K/mm3 (4.8-10.8)
[2024-06-12 10:07] LABS: HCG,Quantitative 34233 mIU/ml (0-5.42)
[2024-06-12 10:35] LABS: HIV Combo NEGATIVE (Negative)
[2024-06-12 10:42] LABS: Hepatitis C Ab Qual. W/ RFX NEGATIVE (Negative)
[2024-06-12 22:16] LABS: RPR W/RFX Titers Nonreactive (Nonreactive)
[2024-06-13 07:24] LABS: Hepatitis B Surface Antigen Negative (Negative)
[2024-06-13 09:09] LABS: Rubella Antibodies, IgG 3.94 index (Immune >0.99)
== END 2024-06-12 23:59 | disposition home or self-care (01) ==
LOC: LAB 08:53
PROVIDERS: PCP Nurse Practitioner Family; Visit Provider Obstetrics & Gynecology
DX: N93.9 Abnormal uterine and vaginal bleeding, unspecified (principal)
CPT/HCPCS: 36415; 84702; 85025; 86592; 86762; 86803; 86850; 87340; 87389

== ENCOUNTER 2024-06-13 09:03 | Outpatient (CLI) | payer OTHER, SELFPAY ==
[2024-06-13 10:10] LABS: HCG,Quantitative 29533 mIU/ml (0-5.42)
== END 2024-06-13 23:59 | disposition home or self-care (01) ==
LOC: LAB.DROPOF 09:03
PROVIDERS: PCP Obstetrics & Gynecology; Visit Provider Obstetrics & Gynecology
DX: Z34.90 Encounter for supervision of normal pregnancy, unspecified, unspecified trimester (principal)
CPT/HCPCS: 84702

== ENCOUNTER 2024-06-16 12:49 | Outpatient (CLI) | payer OTHER, SELFPAY ==
[2024-06-16 13:57] LABS: HCG,Quantitative 24831 mIU/ml (0-5.42)
== END 2024-06-16 23:59 | disposition home or self-care (01) ==
PROVIDERS: PCP Nurse Practitioner Family; Visit Provider Obstetrics & Gynecology
DX: O20.9 Hemorrhage in early pregnancy, unspecified (principal)
CPT/HCPCS: 36415; 84702

== ENCOUNTER 2024-06-23 15:04 | Day surgery (SDC) | payer OTHER, SELFPAY ==
[2024-06-23] VITALS (22 sets, daily range): BP systolic 81–121; BP diastolic 44–72; PULSE 71–109; RESP 16–18; TEMP 36.1–36.7; O2SAT 95–100; BMI 24.7
--- NOTE | 2024-06-23 15:13 | US_ITS ---
PROCEDURE: US TRANSVAGINAL CLINICAL INDICATION: recent miscarriage, still bleeding/pain COMPARISON: CT CT ABDOMEN PELVIS W CON from 08/03/2023 US US INGUINAL RT from 11/06/2023 FINDINGS: Transvaginal sonographic images of the pelvis were obtained. UTERUS: 9.4cm x 6.4cmx 4.8 cm anteverted with a combined endometrial thickness of 2.4 mm. LEFT OVARY: Not visualized RIGHT OVARY: 4.2cmx 2.5cmx2.5 cm with a volume of 13.8ml. There are multiple small follicles. The right ovary is seen and appears normal. Doppler flow to both ovaries are seen. There is no fluid in the cul-de-sac. IMPRESSION: 1. Anteverted, bulky uterus. The endometrium at the fundus appears thin. Difficult exam secondary to the patient's urinary retention and full bladder. 2. There appears to be retained products in the lower uterine segment/cervix. 3. The left ovary is not visualized. The right ovary appears normal and has multiple small peripheral follicles. 4. No fluid in the cul-de-sac. 5. I spoke to Dr. Khan in the ER as well as Dr. Cedeno about patient's findings. Dictated by: Hoang Talbert MD 06/23/2024 16:27 Hoang Talbert MD in OV 06/23/2024 16:27
--- NOTE | 2024-06-23 15:14 | HMH.EDGENADL ---
Discharge Plan Disposition Patient Disposition: Admitted Condition: Good Prescriptions Prescriptions: New hydrocodone-acetaminophen 5-325 mg tablet 1 tab PO Q6H PRN (Reason: pain) Qty: 12 0RF ibuprofen 800 mg tablet 800 mg PO Q8H PRN (Reason: pain) Qty: 20 0RF Continued pyridoxine (vitamin B6) 25 mg tablet 25 mg PO DAILY Unisom (doxylamine) 25 mg tablet 25 mg PO HS PRN ondansetron 4 mg tablet,disintegrating 4 mg PO Q6H Qty: 30 1RF Classic 28 mg iron- 800 mcg tablet PO promethazine 25 mg tablet 25 mg PO Q6H PRN (Reason: nausea and vomiting) Qty: 30 2RF Referrals Follow up/Referrals: Eboni Kellogg APRN [Primary Care Provider] - See instructions Clinical Impressions Clinical Impression: Retained products of conception, UTI (urinary tract infection) Abdominal pain Qualifiers: Abdominal location: unspecified location Qualified Code(s): R10.9 - Unspecified abdominal pain Print Language Print Language: [place] Discharge ED Provider: Brooke George General Adult HPI General Chief complaint: Vaginal Bleeding Stated complaint: Abdominal pain,9 weeks Time Seen by Provider: 06/23/24 15:06 History of Present Illness HPI narrative: This patient is a 28-year-old female who had recent missed (US 06/10>06/13 without change, was estimated 7 wks preg at that time but not progressing and no cardiac activity on US) presenting with concern for vaginal bleeding, pelvic cramping. Patient reports that she has been bleeding now for about a week and a half, but bleeding has actually lightened up some. It was initially worse than a usual period, however it has now lightened up to about the amount of bleeding as a regular period. Her concerns at this time are now really bad pelvic pain and cramping. She was diagnosed with a missed with ultrasound 06/13/2024 and followed up 06/16/2024, at which point she was offered D&C versus medication. She wanted to continue with expectant management and see if she completed the spontaneous on her own. She has not yet followed up again outpatient. She notes that the bad cramping has been going on since yesterday, but today is much worse. She felt she was going to pass out the cramping got so bad prior to arrival. No fevers or chills. She does report nausea. Related Data Home Medications ?Medication ?Instructions ?Recorded ?Confirmed vits no.126-ferrous fum tab PO 02/15/24 06/16/24 28 mg iron-folic acid 800 mcg tablet (Classic ) doxylamine succinate 25 mg tablet 25 mg PO HS PRN 06/10/24 06/16/24 (Unisom (doxylamine)) pyridoxine (vitamin B6) 25 mg 25 mg PO DAILY 06/10/24 06/16/24 tablet Previous Rx's ?Medication ?Instructions ?Recorded promethazine 25 mg tablet 25 mg PO Q6H PRN nausea and 05/09/24 vomiting #30 tabs ondansetron 4 mg disintegrating 4 mg PO Q6H #30 tabs 06/10/24 tablet hydrocodone 5 mg-acetaminophen 325 1 tab PO Q6H PRN pain #12 tabs 06/23/24 mg tablet ibuprofen 800 mg tablet 800 mg PO Q8H PRN pain #20 tabs 06/23/24 Allergies Allergy/AdvReac Type Severity Reaction Status Date / Time No Known Allergies Allergy Verified 06/13/24 08:17 [facility] Disclaimer: The information contained in this section may have been updated after the patient was seen, as this information can be updated by other users. Medical History (Updated 06/23/24 @ 17:46 by Radha Cedeno DO) Incomplete spontaneous Missed Vaginal bleeding affecting early Constipation Nausea and vomiting in UTI (urinary tract infection) Decreased libido without sexual dysfunction Patient desires Irregular menstrual cycle Dyspareunia in female Endometriosis History of nephrolithiasis Hemorrhagic cyst of left ovary Surgical History History of Family History Other No significant family history Social History Smoking Status: Never smoker alcohol intake: current alcohol intake frequency: holidays/special occasions only substance use type: denies use current occupational status: employed Travel in the last 8 weeks: None household members: spouse and children Have you lived/traveled outside US in past 30 days?: No Contact w/someone who lives/traveled outside US past 30 days?: No Exposure to someone with infectious disease in past 14 days?: No Do you have a fever (greater than 100.4 F or 38 C)?: No Have you tested positive for COVID-19: No Exposed to someone with COVID-19 in past 14 days?: No Do you have a sore throat?: No Do you have a cough?: No Do you have any weakness?: No Do you have any diarrhea?: No Are you experiencing any unusual bleeding?: No Do you have any muscle aches/pain?: No Do you have any abdominal pain?: No Are you experiencing loss of taste or smell?: No Other Medical History Have you received the Flu Vaccine for this season: No Have you received the Pneumonia Vaccine: No ROS Obtained: Yes All systems reviewed & no additional complaints except as documented Physical Exam General General appearance: alert Comment: Uncomfortable appearing Head Head exam: atraumatic and normocephalic Eye Eye exam: Present normal appearance, PERRL and EOMI ENT ENT exam: Present normal exam, normal oropharynx, mucous membranes moist and normal external ear exam Neck Neck exam: Present normal inspection, full ROM and trachea midline; Absent tenderness Chest Chest inspection: Present normal inspection and symmetric chest wall rise; Absent tenderness Respiratory Respiratory exam: Present normal lung sounds bilaterally; Absent respiratory distress, wheezes, stridor or accessory muscle use Cardiovascular Cardiovascular exam: Present normal rhythm and tachycardia Abdominal Exam Abdominal exam: Present soft and tenderness (Suprapubic); Absent distention or guarding Extremities Exam Extremities exam: Present normal inspection, full ROM and normal capillary refill; Absent tenderness or edema Back Exam Back exam: Present normal inspection and full ROM; Absent tenderness Neurological Exam Neurological exam: Present alert, oriented X3, CN II-XII intact and normal gait; Absent motor sensory deficit Psychiatric Psychiatric exam: Present normal affect and normal mood Skin Skin exam: Present warm and dry Medical Decision Making Medical Records Medical records reviewed: Yes I reviewed the patient's medical records. Screening: Per USPSTF and CDC recommendations, given the prevalence of disease in our region, it is our hospital?s policy to screen for HIV and viral Hepatitis for all patients aged 18 and over and those with ongoing risk factors. [place] Inquiry Pt receiving controlled substance: No Vital Signs: 06/23/24 15:05 06/23/24 15:10 06/23/24 16:18 Temperature 98.0 F Temperature Source Oral Pulse Rate 103 H Pulse Rate [Right Radial] 109 H Respiratory Rate 18 Blood Pressure 121/72 103/57 L Blood Pressure [Right Arm] 121/72 Blood Pressure Mean 63 Blood Pressure Mean [Right Arm] 88 Blood Pressure Source [Right Arm] Automatic Cuff Blood Pressure Position [Right Arm] Sitting 02 Sat by Pulse Oximetry 99 95 98 Oxygen Delivery Method Room Air Room Air Room Air 06/23/24 16:18 06/23/24 16:30 06/23/24 16:45 Temperature Temperature Source Pulse Rate 101 H 82 72 Pulse Rate [Right Radial] Respiratory Rate Blood Pressure 103/57 L 120/63 88/44 L Blood Pressure [Right Arm] Blood Pressure Mean 79 58 Blood Pressure Mean [Right Arm] Blood Pressure Source [Right Arm] Blood Pressure Position [Right Arm] 02 Sat by Pulse Oximetry 98 100 100 Oxygen Delivery Method Room Air Room Air Room Air 06/23/24 16:46 06/23/24 17:00 06/23/24 17:01 Temperature Temperature Source Pulse Rate 72 80 81 Pulse Rate [Right Radial] Respiratory Rate Blood Pressure 102/58 L 81/53 L 91/51 L Blood Pressure [Right Arm] Blood Pressure Mean 67 59 63 Blood Pressure Mean [Right Arm] Blood Pressure Source [Right Arm] Blood Pressure Position [Right Arm] 02 Sat by Pulse Oximetry 100 99 100 Oxygen Delivery Method Room Air Room Air Room Air 06/23/24 17:02 06/23/24 17:13 06/23/24 17:15 Temperature Temperature Source Pulse Rate 76 74 77 Pulse Rate [Right Radial] Respiratory Rate Blood Pressure 96/64 L 104/58 L 86/51 L Blood Pressure [Right Arm] Blood Pressure Mean 70 66 57 Blood Pressure Mean [Right Arm] Blood Pressure Source [Right Arm] Blood Pressure Position [Right Arm] 02 Sat by Pulse Oximetry 99 98 100 Oxygen Delivery Method Room Air Room Air Room Air 06/23/24 17:30 Temperature Temperature Source Pulse Rate 76 Pulse Rate [Right Radial] Respiratory Rate Blood Pressure 87/55 L Blood Pressure [Right Arm] Blood Pressure Mean 60 Blood Pressure Mean [Right Arm] Blood Pressure Source [Right Arm] Blood Pressure Position [Right Arm] 02 Sat by Pulse Oximetry 98 Oxygen Delivery Method Room Air Lab Data Lab results reviewed: Yes I reviewed the patient's lab results. Lab Results 06/23/24 15:13: WBC 11.5 H, RBC 4.03 L, Hgb 11.1 L, Hct 32.8 L, MCV 81.4, MCH 27.5, MCHC 33.8, RDW 12.1, Plt Count 338, MPV 8.9, Neut % (Auto) 55.2, Lymph % (Auto) 35.9, [place] % (Auto) 6.6, Eos % (Auto) 1.6, Baso % (Auto) 0.4, Neut # (Auto) 6.3, Lymph # (Auto) 4.1, [place] # (Auto) 0.8, Eos # (Auto) 0.2, Baso # (Auto) 0.1, PT 10.2, INR 0.92, APTT 23.4, Sodium 139, Potassium 3.7, Chloride 101, Carbon Dioxide 24, Anion Gap 17.7 H, BUN 14, Creatinine 0.70, Estimated Creat Clear 118, Estimated GFR 101, Est GFR ( Amer) 122, Glucose 106 H, Calcium 9.8, Total Bilirubin 0.7, AST 35, ALT 33, Alkaline Phosphatase 96, Total Protein 8.4 H, Albumin 5.1 H, Globulin 3.3 H, Albumin/Globulin Ratio 1.5, HCG, Quant 95345 H, HCV Ab JAVI w/Rflx PCR Qn Negative, HIV Ag/Ab Combo Qual Negative 06/23/24 16:14: Urine Color Yellow, Urine Appearance Clear, Urine pH 6.5, Ur Specific [place] 1.025, Urine Protein 3+ A, Urine Glucose (UA) Negative, Urine Ketones Trace, Urine Blood 3+ A, Urine Nitrate Positive A, Urine Bilirubin 2+ A, Urine Urobilinogen 1.0, Ur Leukocyte Esterase 1+ A, Urine RBC 50-100, Urine WBC None, Ur Squamous Epith Cells Occasional, Urine Bacteria Trace 06/23/24 15:13 06/23/24 15:13 Orders (Tests/Meds): ED MEDICATIONS Generic Name Dose Route Start Last Admin Trade Name Freq PRN Reason Stop Dose Admin Lactated Ringer's 1,000 mls @ 999 mls/hr 06/23/24 17:38 06/23/24 17:38 Lactated Ringer's 1000 Ml Bag IV 06/23/24 18:38 999 mls/hr .Q1H1M ONE Administration Discontinued Medications Generic Name Dose Route Start Last Admin Trade Name Adolphq PRN Reason Stop Dose Admin Acetaminophen 1,000 mg 06/23/24 15:14 06/23/24 15:24 Acetaminophen 1,000mg/100ml Vial IV 06/23/24 15:15 1,000 mg ONCE ONE Administration Doxycycline Hyclate 200 mg 06/23/24 17:13 06/23/24 17:30 Doxycycline Hycl 100 Mg Tablet PO 06/23/24 17:14 200 mg ONCE ONE Administration Hydromorphone HCl 0.5 mg 06/23/24 16:24 06/23/24 16:32 Hydromorphone 2mg/Ml Syringe IV 06/23/24 16:25 0.5 mg ONCE ONE Administration Ketorolac Tromethamine 15 mg 06/23/24 15:14 06/23/24 15:23 Ketorolac 30mg/Ml Vial IV 06/23/24 15:15 15 mg ONCE ONE Administration Morphine Sulfate 4 mg 06/23/24 15:34 06/23/24 15:39 Morphine 4mg/Ml Syringe IV 06/23/24 15:35 4 mg ONCE ONE Administration Ondansetron HCl 4 mg 06/23/24 15:14 06/23/24 15:23 Ondansetron 4mg/2ml Vial IV 06/23/24 15:15 4 mg ONCE ONE Administration ORDERS Category Date Time Status Consult to Gynecology [CONS] Routine Cons 06/23/24 16:24 Ordered US transvaginal Stat Exams 06/23/24 15:13 Completed Activated Partial Thrombo Time Stat Lab 06/23/24 15:13 Completed Complete Blood Count Auto Diff Stat Lab 06/23/24 15:13 Completed Comprehensive Metabolic Panel Stat Lab 06/23/24 15:13 Completed HCG,Quantitative Stat Lab 06/23/24 15:13 Completed HIV Combo Stat Lab 06/23/24 15:13 Completed Hepatitis C Ab Qual. W/ RFX Stat Lab 06/23/24 15:13 Completed Prothrombin Time INR Stat Lab 06/23/24 15:13 Completed UA [Urinalysis and Microscopic] Stat Lab 06/23/24 16:14 Completed Urine Culture Stat Micro 06/23/24 16:14 Received Medical Decision Narrative: In summary, this patient is a 28-year-old female presenting to the Emergency Department for evaluation of pelvic pain/cramping, vaginal bleeding in the setting of recent missed (dx US 06/13/24. Differential diagnoses considered include but are not limited to retained products of conception, septic , symptomatic anemia. Ruling out the most morbid conditions drove assessment. I reviewed patient's past medical records and noted outpatient OB evaluations and ultrasounds as detailed in HPI with most recent ultrasound 06/13/2024 showing no progression of and no heartbeat. I noted follow-up 06/16/2024 with expectant management chosen as opposed to D&C versus Cytotec. On exam, the patient is uncomfortable appearing with suprapubic tenderness, no rebound or guarding. She is afebrile and has reported no fevers at home. She is mildly tachycardic and is painful. Workup included CBC, CMP, quantitative hCG, urinalysis, and transvaginal ultrasound. She was given IV morphine, Zofran, Toradol, and acetaminophen for symptomatic improvement. I independently interpreted ultrasound prior to the radiologist read and noted retained products of conception. Please see their read for final interpretation. Labs were obtained that demonstrated mild leukocytosis, mild anemia. White count is 11, hemoglobin is 11.1 not significantly changed from prior. Chemistry demonstrates mildly elevated anion gap. hCG is downtrending but still elevated at 13,826. Urinalysis is concerning for infection with positive nitrates. She also has blood, likely from vaginal bleeding. She has 1+ leukocyte esterase.. On reassessment, patient had continued severe pain, was very uncomfortable. Given this, ordered IV Dilaudid. I had an interactive discussion with Dr. Cedeno and Dr. Golden with gynecology who recommend patient will go to OR for D&C. Doxycycline was given per gynecology recommendations. Patient was transported to the OR in stable condition. Critical Care Critical Care Time Critical Care Time: No
[2024-06-23] MEDS: KETOROLAC 30MG/ML VIAL 15 MG IV (15:23)
[2024-06-23] MEDS: ONDANSETRON 4MG/2ML VIAL 4 MG IV (15:23)
[2024-06-23] MEDS: ACETAMINOPHEN 1,000MG/100ML VIAL 1000 MG IV (15:24)
[2024-06-23 15:27] LABS: Basophils # 0.1 K/mm3 (0-0.2); Basophils % 0.4 % (0.1-2.0); Eosinophils # 0.2 K/mm3 (0.0-0.4); Eosinophils % 1.6 % (0.1-12.0); Hematocrit 32.8 % (37.0-47.0); Hemoglobin 11.1 g/dL (12.2-16.2); Lymphocytes # 4.1 K/mm3 (0.7-4.5); Lymphocytes % 35.9 % (10-50); Mean Corpuscular HGB Conc 33.8 g/dL (31.8-35.4); Mean Corpuscular Hemoglobin 27.5 pg (27.0-31.2); Mean Corpuscular Volume 81.4 fl (81-99); Mean Platelet Volume 8.9 fl (7.4-10.4); Monocytes # 0.8 K/mm3 (0.1-1.0); Monocytes % 6.6 % (1.7-9.3); Neutrophils # 6.3 K/mm3 (1.8-7.8); Neutrophils % 55.2 % (37.0-80.0); Platelet Count 338 K/mm3 (142-424); Red Blood Count 4.03 M/mm3 (4.20-5.40); Red Cell Distribution Width 12.1 % (11.5-17.5); White Blood Count 11.5 K/mm3 (4.8-10.8)
[2024-06-23] MEDS: MORPHINE 4MG/ML SYRINGE 4 MG IV (15:39)
[2024-06-23 15:41] LABS: Albumin Level 5.1 g/dl (3.5-5.0); Chloride 101 mmol/L (98-107); Potassium 3.7 mmoL/L (3.5-5.1); Sodium 139 mmol/L (136-145)
[2024-06-23 15:43] LABS: Blood Urea Nitrogen 14 mg/dl (7-17); Creatinine Clearance Estimated 118 mL/min (50-200); Estimated Glomerular Filt Rate 101 ml/min (>60); GFR (African American) 122 ML/MIN (>60)
[2024-06-23 15:44] LABS: Alanine Aminotransferase 33 U/L (12-78); Albumin/Globulin Ratio 1.5 (1.1-1.8); Alkaline Phosphatase 96 U/L (38-126); Anion Gap 17.7 mEq/L (5-15); Aspartate Amino Transferase 35 U/L (14-36); Bilirubin,Total 0.7 mg/dl (0.2-1.3); Calcium 9.8 mg/dl (8.4-10.2); Carbon Dioxide 24 mmol/L (22.0-30.0); Globulin 3.3 g/dL (1.3-3.2); Glucose 106 mg/dl (74-100); Total Protein,Serum 8.4 g/dl (6.3-8.2)
[2024-06-23 15:50] LABS: Activated Partial Thrombo Time 23.4 seconds (22.5-28.5); INR 0.92 (0.9-1.1); Prothrombin Time 10.2 seconds (9.2-12.1)
--- NOTE | 2024-06-23 16:05 | PC.NURSE ---
Patient is back in the room
[2024-06-23 16:18] LABS: Microscopic, Urine URINE MICROSCOPIC (MICROSCOPIC)
--- NOTE | 2024-06-23 16:24 | PC.NURSE ---
warm pack provided to patient
[2024-06-23 16:25] LABS: HCG,Quantitative 13826 mIU/ml (0-5.42)
[2024-06-23] MEDS: HYDROMORPHONE 2MG/ML SYRINGE 0.5 MG IV (16:32)
[2024-06-23 16:51] LABS: HIV Combo NEGATIVE (Negative)
[2024-06-23 17:00] LABS: Hepatitis C Ab Qual. W/ RFX NEGATIVE (Negative)
--- NOTE | 2024-06-23 17:13 | PC.NURSE ---
pt denies any needs at this time, states pain has improved at this time.
--- NOTE | 2024-06-23 17:13 | PC.NURSE ---
spoke with Dr. Cedeno, pt to go for D&C at this time. Anesthesia in house and notified. Spoke with Nicolle and Vanessa regarding procedure.
[2024-06-23 17:19] LABS: Appearance,Urine CLEAR (Clear); Blood, Urine 3+ (Negative); Color,Urine YELLOW (Yellow); Glucose,Urine (UA) Negative (Negative); Ketones,Urine TRACE (Negative); Leukocyte Esterase,Urine 1+ (Negative); Nitrate,Urine POSITIVE (Negative); PH,Urine 6.5 (5.0-8.5); Protein,Urine 3+ (Negative); Specific Gravity, Urine 1.025 (1.005-1.030)
[2024-06-23 17:29] LABS: Bacteria,Urine Trace /lpf; RBC,Urine 50-100 #/hpf (0-3); Squamous Epithelial Cell,Urine Occasional #/hpf (0-5)
[2024-06-23 17:30] LABS: Bilirubin,Urine 2+ (Negative)
[2024-06-23] MEDS: DOXYCYCLINE HYCL 100 MG TABLET 200 MG PO (17:30)
--- NOTE | 2024-06-23 17:37 | EXP.HP ---
History of Present Illness *Admission Date: 06/23/24 *Reason for visit:: Heavy vaginal bleeding and pelvic pain *History of present illness: Mrs Sveta Be is a 28 yo who presents to [facility] ED with complaint of worsening pelvic pain and vaginal bleeding with known spontaneous . She was seen in the office on 06/10/24 for initial ob visit at 6w1d by LMP. Ultrasound in the office demonstrated SIUP with CRL measuring 6w1d with grossly normal appearing yolk sac and pole. No heart beat detected. Beta hcg quant was 34,233 on 06/12/24. She started to experience light bleeding with passage of clots and repeat ultrasound on 06/13 demonstrated SIUP with grossly normal appearing yolk sac with pole and gestational sac visualized. pole measured 6w1d. 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 Repeat beta hcg quant decreased to 29,533. On 06/16 ultrasound demonstrated shrinking of yolk sac, pole still measuring 6w1d, no cardiac activity and beta hcg quant was 24,831. Decision was made to proceed with expectant management. She reports bleeding and pain increased over the weekend. The pain would wax and wane. Today she was getting her nails done and has severe pelvic pain along with heavy bleeding and came to the ED. Ultrasound today, 06/23 demonstrated anteverted, bulky uterus. The endometrium at the fundus appears thin. Difficult exam secondary to the patient's urinary retention and full bladder. 2. There appears to be retained products in the lower uterine segment/cervix. ABO RH: O positive. Hgb 11.1. [facility] Disclaimer: The information contained in this section may have been updated after the patient was seen, as this information can be updated by other users. Medical History (Updated 06/23/24 @ 17:46 by Radha Cedeno DO) Incomplete spontaneous Missed Vaginal bleeding affecting early Constipation Nausea and vomiting in UTI (urinary tract infection) Decreased libido without sexual dysfunction Patient desires Irregular menstrual cycle Dyspareunia in female Endometriosis History of nephrolithiasis Hemorrhagic cyst of left ovary Surgical History History of Family History Other No significant family history Social History Smoking Status: Never smoker alcohol intake: current alcohol intake frequency: holidays/special occasions only substance use type: denies use current occupational status: employed Travel in the last 8 weeks: None household members: spouse and children Have you lived/traveled outside US in past 30 days?: No Contact w/someone who lives/traveled outside US past 30 days?: No Exposure to someone with infectious disease in past 14 days?: No Do you have a fever (greater than 100.4 F or 38 C)?: No Have you tested positive for COVID-19: No Exposed to someone with COVID-19 in past 14 days?: No Do you have a sore throat?: No Do you have a cough?: No Do you have any weakness?: No Do you have any diarrhea?: No Are you experiencing any unusual bleeding?: No Do you have any muscle aches/pain?: No Do you have any abdominal pain?: No Are you experiencing loss of taste or smell?: No Other Medical History Have you received the Flu Vaccine for this season: No Have you received the Pneumonia Vaccine: No Review of Systems Review of Systems Review of systems:: pertinent systems reviewed and negative unless documented below *Genitourinary Genitourinary: Reports abnormal vaginal bleeding and Reports pelvic pain Meds Home Medications and Allergies Home Medications ?Medication ?Instructions ?Recorded ?Confirmed ?Type vits no.126-ferrous fum tab PO 02/15/24 06/16/24 History 28 mg iron-folic acid 800 mcg tablet (Classic ) promethazine 25 mg tablet 25 mg PO Q6H PRN nausea and 05/09/24 06/16/24 Rx vomiting #30 tabs doxylamine succinate 25 mg tablet 25 mg PO HS PRN 06/10/24 06/16/24 History (Unisom (doxylamine)) ondansetron 4 mg disintegrating 4 mg PO Q6H #30 tabs 06/10/24 06/16/24 Rx tablet pyridoxine (vitamin B6) 25 mg 25 mg PO DAILY 06/10/24 06/16/24 History tablet New Prescriptions to Start Prescriptions: Allergies Allergy/AdvReac Type Severity Reaction Status Date / Time No Known Allergies Allergy Verified 06/13/24 08:17 Exam Data for Last 24 hours Vital signs and Labs for Last 24 Hours: Temp Pulse Resp BP Pulse Ox O2 Del Method 98.0 F 103 H 18 121/72 95 Room Air 06/23/24 15:05 06/23/24 15:10 06/23/24 15:05 06/23/24 15:10 06/23/24 15:10 06/23/24 15:10 Laboratory Results - last 24 hr 06/23/24 15:13: WBC 11.5 H, RBC 4.03 L, Hgb 11.1 L, Hct 32.8 L, MCV 81.4, MCH 27.5, MCHC 33.8, RDW 12.1, Plt Count 338, MPV 8.9, Neut % (Auto) 55.2, Lymph % (Auto) 35.9, [place] % (Auto) 6.6, Eos % (Auto) 1.6, Baso % (Auto) 0.4, Neut # (Auto) 6.3, Lymph # (Auto) 4.1, [place] # (Auto) 0.8, Eos # (Auto) 0.2, Baso # (Auto) 0.1, PT 10.2, INR 0.92, APTT 23.4, Sodium 139, Potassium 3.7, Chloride 101, Carbon Dioxide 24, Anion Gap 17.7 H, BUN 14, Creatinine 0.70, Estimated Creat Clear 118, Estimated GFR 101, Est GFR ( Amer) 122, Glucose 106 H, Calcium 9.8, Total Bilirubin 0.7, AST 35, ALT 33, Alkaline Phosphatase 96, Total Protein 8.4 H, Albumin 5.1 H, Globulin 3.3 H, Albumin/Globulin Ratio 1.5, HCG, Quant 27285 H, HCV Ab JAVI w/Rflx PCR Qn Negative, HIV Ag/Ab Combo Qual Negative 06/23/24 16:14: Urine Color Yellow, Urine Appearance Clear, Urine pH 6.5, Ur Specific [place] 1.025, Urine Protein 3+ A, Urine Glucose (UA) Negative, Urine Ketones Trace, Urine Blood 3+ A, Urine Nitrate Positive A, Urine Bilirubin 2+ A, Urine Urobilinogen 1.0, Ur Leukocyte Esterase 1+ A, Urine RBC 50-100, Urine WBC None, Ur Squamous Epith Cells Occasional, Urine Bacteria Trace I & O for Last 24 hours: Intake & Output 06/20/24 06/21/24 06/22/24 06/23/24 23:59 23:59 23:59 23:59 Weight 135 lb Constitutional Constitutional: no acute distress and cooperative *Routine HEENT Exam Head: Present normocephalic and atraumatic Eye: Absent conjunctivae pink ENT: Present mucous membranes moist *Routine Neck Exam Neck: Present full ROM *Routine Respiratory Exam Respiratory: Present CTA bilaterally and normal respiratory effort *Routine Cardiovascular Exam Cardiovascular: Present RRR *Routine Abdominal Exam Abdominal: Present soft and tenderness *Routine Rectal Exam Rectal:: deferred *Routine Genitalia Exam Genitalia:: normal female *Routine Extremities Exam Extremities: Present full ROM; Absent edema or calf tenderness *Routine Neurological Exam Neurological: Present alert, moving all extremities and normal speech Routine Psychiatric Exam Psychiatric: Present normal affect and cooperative Assessment and Plan *Assessment and plan (1) Incomplete spontaneous : Status: Acute Category: Medical Code(s): O03.4 - Incomplete spontaneous without complication (2) Abdominal pain: Status: Acute Qualifiers: Abdominal location: unspecified location Qualified Code(s): R10.9 - Unspecified abdominal pain Category: Medical Code(s): R10.9 - Unspecified abdominal pain Plan Reviewed and discussed ultrasound findings with Sveta, her and mother in-law. Discussed trying to remove products of conception/clots in the ED room with pain medication on board vs going to OR for D&C. She would like to proceed with D&C. Discussed risks, benefits, alternatives, expectations and possible complications of surgery. All questions addressed and answered. She voiced understanding of risks and possible complications. Proceed with D&C in the OR Doxycycline 200 mg PO preoperatively ABO RH: O positive
[2024-06-23] MEDS: LACTATED RINGERS 1000ML 1,000 ML 999 ML IV (17:38)
--- NOTE | 2024-06-23 17:52 | PC.NURSE ---
pt going to OR at this time.
--- NOTE | 2024-06-23 17:58 | PC.NURSE ---
lab called and blood in lab for type and screen.
--- NOTE | 2024-06-23 18:45 | EXP.OP.NOTE ---
Date of procedure: 06/23/24 Pre-op Diagnosis:: 1. Incomplete 2. ABO RH: O positive Post-op Diagnosis:: 1. Incomplete 2. ABO RH: O positive Procedure performed:: Uterine curettage Surgeon:: Radha Cedeno DO Fitness And Wellness Manager(s):: N/a EGGS INSPECTOR:: Other (JEWEL Agrawal) Anesthesia: GETA Estimated blood loss (mL): 50 Clinical Note:: Mrs Sveta Be is a 28 yo who presents to [facility] ED with complaint of worsening pelvic pain and vaginal bleeding with known spontaneous . She was seen in the office on 06/10/24 for initial ob visit at 6w1d by LMP. Ultrasound in the office demonstrated SIUP with CRL measuring 6w1d with grossly normal appearing yolk sac and pole. No heart beat detected. Beta hcg quant was 34,233 on 06/12/24. She started to experience light bleeding with passage of clots and repeat ultrasound on 06/13 demonstrated SIUP with grossly normal appearing yolk sac with pole and gestational sac visualized. pole measured 6w1d. Flicker seen on pole but unable to seed cone picker with ultrasound. Repeat beta hcg quant decreased to 29,533. On 06/16 ultrasound demonstrated shrinking of yolk sac, pole still measuring 6w1d, no cardiac activity and beta hcg quant was 24,831. Decision was made to proceed with expectant management. She reports bleeding and pain increased over the weekend. The pain would wax and wane. Today she was getting her nails done and has severe pelvic pain along with heavy bleeding and came to the ED. Ultrasound today, 06/23 demonstrated anteverted, bulky uterus. The endometrium at the fundus appears thin. Difficult exam secondary to the patient's urinary retention and full bladder. 2. There appears to be retained products in the lower uterine segment/cervix. ABO RH: O positive. Hgb 11.1. Operative findings:: 1. On bimanual exam, uterus 7 week size, midposition. No adnexal masses palpated 2. During prepping with betadine sponge sticks large amount of clots were passed along with clot containing what appeared to be gestational sac. This was collected and will be sent to pathology for review. Operative note:: Risks, benefits and alternatives were discussed with the patient. Risks include but are not limited to bleeding, infection, uterine perforation and VTE. Patient voiced understanding and agreed to proceed. She was given Doxycycline 200 mg PO preoperatively. She was wheeled back to the operating room and placed under general anesthesia without difficulty. She was placed in dorsal lithotomy position and prepped and draped in the normal sterile fashion. Straight catheter was used to drain the bladder. A bimanual exam was performed. A weighted Auvard was placed in the vaginal vault. Ringed forcep was was placed on anterior lip of the cervix. Uterus sounded to 10. Cervix was already dilated. A medium size sharp curette was inserted through the cervix into the uterine cavity and endometrium was gently curetted with a systematic back and forth movement in a 360 degree manner. All endometrial curettings will be sent to pathology for review. Instruments were removed from the vagina. Hemostasis was noted. Patient was awaken from anesthesia without difficulty. She was transported to recovery room in stable condition. Patient will be discharged home when awake and ambulating. She was given postop instructions as well as instructions to follow-up in the office in 2 weeks or sooner if needed. Condition: stable Disposition: same day Specimens:: 1. Products of conception Complications:: None
--- NOTE | 2024-06-24 08:37 | EXP.ANES.II ---
[facility] Anesthesia Record Part II Anesthesia Record Part II Discharge Time: 19:10 Destination: Surgical Day Care (OP Surgery) PACU nurse assessment reviewed?: Yes Patient Condition:: Good Anesthesia Complications:: None Swallowing reflex intact?: Yes Airway Patency: Patent Cyanosis?: No Blood Pressure: 95/56 SaO2: 100 Respiratory Rate: 16 Pulse Rate: 71 Temperature: 97 F Mental Status: Alert & Oriented Pain level:: 0 Nausea and/or vomitting:: None Intake, IV Amount: 0 Hydration: Adequate
[2024-06-24 08:38] VITALS: BP 95/56; PULSE 71; RESP 16; TEMP 36.1; O2SAT 100
== END 2024-06-23 19:40 | disposition home or self-care (01) ==
LOC: ER 17:49 → SDC 18:00
PROVIDERS: Emergency Provider Emergency Medicine; PCP Nurse Practitioner Family; Visit Provider Obstetrics & Gynecology
PROC: (CPT 58120; principal; 2024-06-23 17:30)
DX: O03.4 Incomplete spontaneous abortion without complication (principal); N93.9 Abnormal uterine and vaginal bleeding, unspecified; R10.2 Pelvic and perineal pain
CPT/HCPCS: 59820; 76830; 80053; 81001; 84702; 85025; 85610; 85730; 86803; 86850; 87086; 87088; 87389; J0131; J0330; J1100; J1171; J1885; J2250; J2270; J2405; J3010; J7120

== ENCOUNTER 2024-08-27 13:21 | Outpatient (CLI) | payer OTHER, SELFPAY ==
--- OUTSIDE RECORDS SUMMARY | 2024-08-27 13:24 | XMS_ITS | Data Portability ---
Author Organization [facility] & [place] [facility] ADMIN Address [address] [place] [id number] Care Team Providers Care Chainstitch Binder Name Role Phone SAM CHATMAN Primary Care Provider RAMIREZ Robison Primary Care Provider Assessment No assessment recorded. Plan of Treatment Reminders Order Date Submit Date Provider Last Modified By Organization Details Last Modified Time Details Appointments None record ed. Lab None record ed. Referral None record ed. Procedures None record ed. Surgeries None record ed. Imaging None record ed. Medication Orders None record ed. Patient TargetsNo targets recorded. Patient InstructionsNo instructions recorded. Reason for Referral None Reported. Results Created Date Observation Date Name Description Value Unit Range Abnormal Flag Note LastModifiedBy Organization Detail LastModifiedTime Result Notes None recorded. Procedures Surgical History Date Name Laterality Status Provider Name and Address Organization Details Recorded Time 9 Abdominal Surgery completed [facility] 01/18/2023 09:47:14 7 Date of Last Colonoscopy completed [facility] 01/18/2023 09:47:14 Imaging Results None recorded. Procedure Notes None recorded. Medical Equipment None Reported. Allergies No known drug allergies Medications Name Sig Start Date Stop Date Status Note LastModified by Organization Details LastModified Time clomiphene citrate 50 mg tablet TAKE ONE TABLET BY MOUTH EVERY DAY ON DAYS 5 through 9 of menstrual CYCLE 11/14 completed Not Available Not Available Not Available hydrocodone 5 mg-acetamin ophen 325 mg tablet TAKE ONE TABLET BY MOUTH EVERY 6 HOURS NEEDED FOR PAIN MAY CAUSE DROWSINES S 12/05 completed Not Available Not Available Not Available phenazopyri dine 200 mg tablet TAKE ONE TABLET BY MOUTH EVERY 8 HOURS FOR PAIN 11/14 completed Not Available Not Available Not Available ondansetron HCl 4 mg tablet TAKE ONE TABLET BY MOUTH EVERY 8 HOURS NEEDED FOR NAUSEA AND VOMITING 01/17 completed Not Available Not Available Not Available sulfamethox azole 800 mg-trimetho prim 160 mg tablet TAKE 1 TABLET BY MOUTH TWICE A DAY FOR 14 DAYS 11/14 completed Not Available Not Available Not Available polymyxin B sulfate 10,000 unit-trimet hoprim 1 mg/mL eye drops instill 1 drop in each affected eye FIVE TIMES DAILY FOR 5 DAYS 01/17 completed Not Available Not Available Not Available oxybutynin chloride 5 mg tablet TAKE ONE TABLET BY MOUTH THREE TIMES DAILY NEEDED FOR FOR BLADDER SPASMS 01/17 completed Not Available Not Available Not Available cefdinir 300 mg capsule TAKE ONE CAPSULE BY MOUTH TWICE DAILY -- FINISH ALL MEDICINE -- 11/14 completed Not Available Not Available Not Available progesteron e micronized 100 mg capsule TAKE 1 CAPSULE BY MOUTH EVERY NIGHT AT BEDTIME 01/17 completed Not Available Not Available Not Available oxycodone 5 mg tablet TAKE ONE TABLET BY MOUTH EVERY 8 HOURS NEEDED FOR PAIN 01/17 completed Not Available Not Available Not Available nitrofurant oin monohydrate /macrocryst als 100 mg capsule TAKE ONE CAPSULE BY MOUTH TWICE DAILY FOR 5 DAYS -- FINISH ALL MEDICINE -- 11/14 completed Not Available Not Available Not Available Gavilyte-C 240 gram-22.72 gram-6.72 gram-5.84 gram oral solution USE DIRECTED ON packaging OR as otherwise directed 01/17 completed Not Available Not Available Not Available Vitals Date Recorded Body height Body mass index (BMI) Body weight Body temperature Provider Name and Address Organization Details Last Updated DateTime 01/18/2023 157.48 cm 27.1 kg/m2 25533.67 g 98 [degF] Brittany Ordaz [facility] & [place] 01/18/2023 09:46:57 Date Recorded Body height Body mass index (BMI) Body weight Body temperature Provider Name and Address Organization Details Last Updated DateTime 01/24/2023 157.48 cm 27.1 kg/m2 65726.67 g 98 [degF] [facility] [place] 01/24/2023 14:20:34 Date Recorded Body height Body mass index (BMI) Body weight Heart rate Oxygen saturation Oxygen saturation in Arterial blood by Pulse oximetry Body temperature Systolic blood pressure Diastolic blood pressure Provider Name and Address Organization Details Last Updated DateTime 4 157.48 cm 26.3 kg/m2 45475.5 8 g 60 /min 98 % 98 % 98.1 [degF] 106 mm[Hg] 66 mm[Hg] An Robersoney JORDEN [facility] & [place] 4 10:57:59 Date Recorded Body height Body mass index (BMI) Body weight Heart rate Oxygen saturation Oxygen saturation in Arterial blood by Pulse oximetry Body temperature Systolic blood pressure Diastolic blood pressure Provider Name and Address Organization Details Last Updated DateTime 4 157.48 cm 25.9 kg/m2 60613.9 6 g 68 /min 99 % 99 % 98.2 [degF] 102 mm[Hg] 72 mm[Hg] [facility] [place] 4 09:39:30 Social History Question Answer Notes LastModified by [employer] Details LastModified Time Tobacco Smoking Status Never [facility] [place] 01/18/2023 09:47:14 Do You Have An Advance Directive? No [email or web address] Information not available 01/18/2023 What Is Your Level Of Alcohol Consumption? Occasional [email or web address] Information not available 01/18/2023 Are You Blind Or Do You Have Difficulty Seeing? No [email or web address] Information not available 01/18/2023 What Was The Date Of Your Most Recent Tobacco Screening? 01/17/2023 [email or web address] Information not available 01/18/2023 Are You Passively Exposed To Smoke? No [email or web address] Information no t available 01/18/2023 Do You Use Any Illicit Or Recreational Drugs? No [email or web address] Information not available 01/18/2023 Sex: Unknown Functional Status Question Answer Note LastModified by [employer] Details LastModified Time What is your exercise level? Occasional [email or web address] Information not available 01/18/2023 Mental Status None recorded. Family History Nothing Reported. Medical History Condition Response Anemia Y Gynecological History Statement/Question Response Menses Monthly Y Duration of Flow (days) 5 Date of Last Colonoscopy 09/28/2016 Date of LMP 01/16/2023 Sexually Active? Y Obstetrics History GPAL:G 0 P 0 0 0 0 Past Encounters Encounter ID Performer Location Encounter Start Date Encounter Closed Date Diagnosis/Indication Diagnosis SNOMED-CT Code Diagnosis ICD10 Code Diagnosis Note [id number] Shlomo Cotton Jr, MD [facility] [address] [facility] [place] [address] 01/18/2023 09:42:32 01/18/2023 10:29:47 Retention of urine 622053943 R33.9 27-year-ol d white female who is neurologic ally intact with recent urinary retention. She has a Villanueva catheter in today and a voiding trial was performed. 250 cc of saline placed into the bladder and the catheter removed. She was able to void 200 cc. She is allowed to go home and is to self cath if needed and record the residual. I will see her back in 1 week with a bladder scan. We discussed possible causes of retention. [id number] Shlomo Cotton Jr, MD [facility] [place] [address] [place] [address] 01/24/2023 14:19:42 01/24/2023 16:20:42 Incomplete emptying of urinary bladder [id number] R39.14 27-year-ol d white female with recent urinary retention. Her CT scan reportedly shows some associated constipati on at the time of her bladder distention . She is been given instructio ns on MiraLax and stool softeners by her emergency room doctor. She is bladder scan herself at work and residuals have been between 204 171 cc. She is not believe her bowels have empty thoroughly yet. We discussed that 200 cc he is okay but still abnormal for her age. We discussed daily regimen for prevention of constipati on and timed voiding when she is at work. She will return if she has any further problems. [id number] DO Elba HANNA General Surgery - [address] [place] [address], [address] [place] [address] 11/15/2023 10:40:15 11/27/2023 07:16:48 Mass of soft tissue 557788849 R22.9 -patient with right lower quadrant/r ight groin soft tissue mass -evaluated under ultrasound in the office and appears to be intramuscu lar -discussed the risks (including bleeding, infection, recurrence ), benefits, alternativ es to excisional biopsy soft tissue mass. Patient agrees to proceed with operative interventi on. -patient to be scheduled at her earliest convenien e [id number] DO Seven HANNAreba kwok General Surgery - [address] [place] [address], [address] [place] [id number] 12/06/2023 09:13:04 12/17/2023 09:01:52 Postoperative visit [id number] Z48.89 - patient is doing well from surgical standpoint - Pathology was discussed with the patient which includes endometria l implant likely from . - May return to work- follow up in surgical office as needed Health Concerns Section Related Observation LastModified by Organization Detai ls LastModified Time None Recorded Concern Status LastModified by Organization Details LastModified Time None Recorded Advance Directives Directive N: Payers Encounter Date Sequence Insurance Name Policy Number Policy Gallo Covered Member ID Gallo Member ID Guarantor Name 01/18/2023 1 [facility] [id number] Lion Be [id number] Sveta Be 01/24/2023 1 [facility] [id number] Lion Be [id number] Sveta Be 11/15/2023 1 [facility] [id number] Lion Be [id number] Sveta Be 12/06/2023 1 [facility] [id number] Lion Be [id number] Sveta Be Notes Date Note Type Note Provider Name and Address Organization Details Recorded Time 01/18/2023 text/html patient is a 27-year-old white female referred for urinary retention from the [facility] Emergency Room. Patient states that the 3 days ago she began having some left lower quadrant pain and went to emergency room. CT scan showed bladder distension and she was asked to void but her bladder scan still showed an elevated residual so Villanueva catheter was placed and a reported 1400 cc was obtained. Prior to the onset of retention she denied any unusual events. She denies any worsening urinary tract symptoms. She does state that she has some occasional bloating the suprapubic region but thought nothing of it. Past medical history is significant for a 10 cm left ovarian cyst that ruptured last October. It did require evacuation of the contents but no surgical resection was performed. Patient does work in the emergency room and stays quite busy making it difficult to void when necessary. She denies any previous problems with urination. She has not had any vaginal deliveries and has had a . Shlomo Cotton Jr, MD [address] [place] [address], [address], [place], [address], [facility] & [place] 01/18/2023 10:52:11 01/24/2023 text/html patient is a 27-year-old white female who was seen last week for urinary retention. 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 CT scan showed bladder distention Villanueva catheter placed with a reported 1400 cc out. She was discharged home with her Villanueva catheter and voiding trial performed at our visit last week and she was able to void 200 cc of the 250 cc placed. She returns today in follow-up. She states she has bladder scanned her bladder in the emergency room few times over the last weekend residuals have been between 204 171 cc. She states that she got 1 of the ER physicians to look at her scan with her and she was told that she had a lot of bowel distention in her sigmoid colon as well consistent with constipation. She gives history of constipation. She is been on a bowel regimen of past few days with MiraLax. She denies a history of frequent urinary tract infections. Shlomo Cotton Jr, MD [address] [facility], [address], [place], [address], [facility] & [place] 01/24/2023 15:12:57 11/15/2023 text/html 28-year-old femanthony veloz presents for right lower quadrant/right groin subcutaneous mass. Patient states she is noticed this for about 1 year and it has progressively enlarged. She states that it is now symptomatic and causing occasional discomfort especially with movement. Denies overlying skin changes or bleeding. MARCY ROSARIO DO [address], [address], [place], [address], [facility] & [place] 11/15/2023 15:10:10 12/06/2023 text/html 28-year-old fema le status post excisional biopsy of intramuscular mass of right lower quadrant. Patient is doing well after surgery without complaints. MARCY ROSARIO, [address], [address], [place], [address], [facility] [place] & [place] 12/06/2023 20:21:28 OBGyn Episode No OBEpisode recorded.
[2024-08-27 15:30] LABS: HCG,Quantitative 210 mIU/ml (0-5.42)
[2024-08-28 12:33] LABS: Progesterone 26.1 ng/mL (.)
== END 2024-08-27 23:59 | disposition home or self-care (01) ==
LOC: LAB 13:22
PROVIDERS: PCP Nurse Practitioner Family; Visit Provider Obstetrics & Gynecology
DX: Z32.01 Encounter for pregnancy test, result positive (principal)
CPT/HCPCS: 36415; 84144; 84702

== ENCOUNTER 2024-08-29 07:55 | Outpatient (CLI) | payer OTHER, SELFPAY ==
--- OUTSIDE RECORDS SUMMARY | 2024-08-29 07:57 | XMS_ITS | Data Portability ---
Author Organization [facility] & [place] [facility] ADMIN Address [address] [place] [address] Care Team Providers Care Manager Of International Name Role Phone SAM CHATMAN Primary Care Provider RAMIREZ Robison Primary Care Provider [phone] Assessment No assessment recorded. Plan of Treatment [...] Details Recorded Time 9 Abdominal Surgery completed [facility] 01/18/2023 09:47:14 7 Date of Last Colonoscopy completed [facility] 01/18/2023 09:47:14 Imaging Results None recorded. Procedure [...] Updated DateTime 01/18/2023 157.48 cm 27.1 kg/m2 01704.67 g 98 [degF] Brittany Ordaz [facility] & [place] 01/18/2023 09:46:57 Date Recorded Body height Body mass index (BMI) Body weight Body temperature Provider Name and Address Organization Details Last Updated DateTime 01/24/2023 157.48 cm 27.1 kg/m2 81087.67 g 98 [degF] [facility] [place] 01/24/2023 14:20:34 Date Recorded Body height Body mass index (BMI) Body weight Heart rate Oxygen saturation Oxygen saturation in Arterial blood by Pulse oximetry Body temperature Systolic blood pressure Diastolic blood pressure Provider Name and Address Organization Details Last Updated DateTime 4 157.48 cm 26.3 kg/m2 58249.5 8 g 60 /min 98 % 98 % 98.1 [degF] 106 mm[Hg] 66 mm[Hg] An Robersoney JORDEN [facility] & [place] 4 10:57:59 Date Recorded Body height Body mass index (BMI) Body weight Heart rate Oxygen saturation Oxygen saturation in Arterial blood by Pulse oximetry Body temperature Systolic blood pressure Diastolic blood pressure Provider Name and Address Organization Details Last Updated DateTime 4 157.48 cm 25.9 kg/m2 38199.9 6 g 68 /min 99 % 99 % 98.2 [degF] 102 mm[Hg] 72 mm[Hg] [facility] [place] & [place] 4 09:39:30 Social History Question Answer Notes LastModified by [employer] Details LastModified Time Tobacco Smoking Status Never [facility]oker [facility] [place] 01/18/2023 09:47:14 Do You Have An Advance Directive? No [email or web address] Information not available 01/18/2023 What Is Your Level Of Alcohol Consumption? Occasional [email or web address] Information not available 01/18/2023 Are You Blind Or Do You Have Difficulty Seeing? No [email or web address] Information not available 01/18/2023 What Was The Date Of Your Most Recent Tobacco Screening? 01/17/2023 [email or web address] Information not available 01/18/2023 Are You Passively Exposed To Smoke? No [email or web address] Information no t available 01/18/2023 Do You Use Any Illicit Or Recreational Drugs? No [email or web address] Information not available 01/18/2023 Sex: Unknown Functional Status Question Answer Note LastModified by [employer] Details LastModified Time What is your exercise level? Occasional [email or web address] Information not available 01/18/2023 Mental Status None [...] SNOMED-CT Code Diagnosis ICD10 Code Diagnosis Note [id number] Shlomo Cotton Jr, MD [facility] [address] [facility] [place] [address] 01/18/2023 09:42:32 01/18/2023 10:29:47 Retention of urine [id number] R33.9 27-year-ol d white female who is [...] scan. We discussed possible causes of retention. [id number] Shlomo Cotton Jr, MD [facility] [place] [address] [place] [address] 01/24/2023 14:19:42 01/24/2023 16:20:42 Incomplete emptying of urinary bladder 641166487 R39.14 27-year-ol d white female with recent [...] return if she has any further problems. [id number] DO Elba HANNA General Surgery - [address] [place] [address], [address] [place] [id number] 11/15/2023 10:40:15 11/27/2023 07:16:48 Mass of soft tissue 696380219 R22.9 -patient with right lower quadrant/r ight groin soft tissue mass -evaluated under ultrasound in the office and appears to be intramuscu lar -discussed the risks (including bleeding, infection, recurrence ), benefits, alternativ es to excisional biopsy soft tissue mass. Patient agrees to proceed with operative interventi on. -patient to be scheduled at her earliest convenien e [id number] DO Seven HANNAreba kwok General Surgery - [address] [place] [address], [address] [place] [address] 12/06/2023 09:13:04 12/17/2023 09:01:52 Postoperative visit [id number] Z48.89 - patient is doing well from [...] Gallo Member ID Guarantor Name 01/18/2023 1 [facility] [id number] Lion Be [id number] Sveta Be 01/24/2023 1 [facility] [id number] Lion Be [id number] Sveta Be 11/15/2023 1 [facility] [id number] Lion Be [id number] Sveta Be 12/06/2023 1 [facility] [id number] Lion Be [id number] Sveta Be Notes Date Note Type Note Provider Name and Address Organization Details Recorded Time 01/18/2023 text/html patient is a 27-year-old white female referred for urinary retention from the [facility] Emergency Room. Patient states that the 3 [...] had a . Shlomo Cotton Jr, MD [address] [place] [address], [address], [place], [address], [facility] & [place] 01/18/2023 10:52:11 01/24/2023 text/html patient is a 27-year-old white female who was seen last week for urinary retention. 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 Shlomo Cotton Jr, MD [address] [facility], [address], [place], [address], [facility] & [place] 01/24/2023 15:12:57 11/15/2023 text/html 28-year-old femanthony veloz presents for right lower quadrant/right groin subcutaneous mass. Patient states she is noticed this for about 1 year and it has progressively enlarged. She states that it is now symptomatic and causing occasional discomfort especially with movement. Denies overlying skin changes or bleeding. MARCY ROSARIO DO [address], [address], [place], [address], [facility] & [place] 11/15/2023 15:10:10 12/06/2023 text/html 28-year-old fema le status post excisional biopsy of intramuscular mass of right lower quadrant. Patient is doing well after surgery without complaints. MARCY ROSARIO, [address], [address], [place], [address], [facility] - [place] & [place] 12/06/2023 20:21:28 OBGyn Episode No OBEpisode recorded.
[2024-08-29 09:54] LABS: HCG,Quantitative 597 mIU/ml (0-5.42)
== END 2024-08-29 23:59 | disposition home or self-care (01) ==
LOC: LAB 07:56
PROVIDERS: PCP Nurse Practitioner Family; Visit Provider Obstetrics & Gynecology
DX: Z34.90 Encounter for supervision of normal pregnancy, unspecified, unspecified trimester (principal)
CPT/HCPCS: 36415; 84702

== ENCOUNTER 2024-09-15 09:45 | Outpatient (CLI) | payer OTHER, SELFPAY ==
[2024-09-16 21:09] LABS: Neisseria gonorrhoeae, NAA Negative (Negative)
== END 2024-09-15 23:59 | disposition home or self-care (01) ==
LOC: LAB.DROPOF 20:21
PROVIDERS: PCP Obstetrics & Gynecology; Visit Provider Obstetrics & Gynecology
DX: Z34.81 Encounter for supervision of other normal pregnancy, first trimester (principal); Z3A.01 Less than 8 weeks gestation of pregnancy
CPT/HCPCS: 87491; 87591